=== PATIENT | male | born 1955 | race Caucasian/White ===

== ENCOUNTER 2018-01-16 08:03 | Inpatient (IN) | payer OTHER, MEDICARE ==
[~2018-01-16] VITALS: Ht 182.9 cm; Wt 98.0 kg
[~2018-01-16 08:03] MED LIST: LISI10TA2 PO; PRAV40TA2 PO
[2018-01-16] MEDS ORDERED: IPRATRPIUM/ALBUTEROL 0.5/2.5MG 3 ML NEBU. NEB ONE (08:15)
[2018-01-16] MEDS ORDERED: predniSONE 10 MG TABLET PO ONE (08:15)
--- NOTE | 2018-01-16 08:20 | PHYS DOC ---
Adult General Chief Complaint Chief Complaint: SHORTNESS OF BREATH HPI HPI Patient is a 62 year old male who presents with dyspnea. Patient had been ill with flulike symptoms over the preceding 7 days. His symptoms included general malaise, myalgias, upper respiratory symptoms. These improved but the patient developed a cough over the most recent 5 days. He states his cough has been productive of copious amounts of what he perceives to be purulent sputum. He began to feel short of breath over the last 24 hours. The patient does not have a history of COPD or other lung diseases. He has no congestive heart failure history. He does take medications for blood pressure, diabetes, hypercholesterolemia, and chronic pain. He does also state he had a very similar episode last year when he presented and was diagnosed with pneumonia. Review of Systems Review of Systems Constitutional: Denies fever or chills Eyes: Denies change in visual acuity HENT: Denies Respiratory: as documented above Cardiovascular: No chest pain GI: Denies abdominal pain Musculoskeletal: Denies acute complaints Integument: Denies rash Neurologic: Denies headache, or focal neuro complaints All other systems were reviewed and found to be within normal limits, except as documented in this note. Current Medications Current Medications Current Medications Medications (Trade) Dose Ordered Sig/Gita Start Time Stop Time Status Last Admin Dose Admin Albuterol Sulfate (Ventolin Neb Soln) 10 mg 1X ONCE 01/16/18 09:30 01/16/18 09:31 DC 01/16/18 09:33 10 MG Albuterol/ Ipratropium (Duoneb) 3 ml 1X ONCE 01/16/18 08:15 01/16/18 08:18 DC 01/16/18 08:33 3 ML Azithromycin 250 ml @ 250 mls/hr 1X ONCE 01/16/18 11:00 01/16/18 11:59 UNV Ceftriaxone Sodium 50 ml @ 100 mls/hr 1X ONCE 01/16/18 09:30 01/16/18 09:59 DC 01/16/18 09:31 100 MLS/HR Hydromorphone HCl (Dilaudid) 1 mg 1X ONCE 01/16/18 10:30 01/16/18 10:30 DC Prednisone (Prednisone) 50 mg 1X ONCE 01/16/18 08:15 01/16/18 08:18 DC 01/16/18 08:26 50 MG Sodium Chloride 1,000 ml @ 1,000 mls/hr 1X ONCE 01/16/18 10:45 01/16/18 11:44 01/16/18 10:41 1,000 MLS/HR Allergies Allergies Allergies Coded Allergies Type Severity Reaction Last Updated Verified No Known Drug Allergies 11/20/13 No Physical Exam Physical Exam Constitutional: Well developed, well nourished, mild increased work of breathing , non-toxic appearance HENT: Normocephalic, atraumatic, bilateral external ears normal, oropharynx moist Eyes: PERRLA, EOMI, conjunctiva normal Neck: Normal range of motion Cardiovascular:Heart rate regular rhythm, no murmur Lungs & Thorax: diminished air flow with wheezes in all graham, mild increased work of breathing Abdomen: Bowel sounds normal, soft, no tenderness Skin: Warm, dry, no erythema Extremities: No edema Neurologic: Alert and oriented X 3 Psychologic: Affect normal Current Patient Data Vital Signs Vital Signs Date Time Temp Pulse Resp B/P (MAP) Pulse Ox O2 Delivery O2 Flow Rate FiO2 01/16/18 09:33 96 Nasal Cannula 3.0 01/16/18 09:30 90 16 218/86 (130) 01/16/18 08:07 98.1 98.1 Lab Values Laboratory Tests Test 01/16/18 08:15 01/16/18 09:20 White Blood Count 7.0 x10^3/uL (4.0-11.0) Red Blood Count 4.54 x10^6/uL (4.30-5.70) Hemoglobin 13.4 g/dL (13.0-17.5) Hematocrit 40.0 % (39.0-53.0) Mean Corpuscular Volume 88 fL (79-100) Mean Corpuscular Hemoglobin 30 pg (25-35) Mean Corpuscular Hemoglobin Concent 34 g/dL (31-37) Red Cell Distribution Width 13.7 % (11.5-14.5) Platelet Count 302 x10^3/uL (140-400) Neutrophils (%) (Auto) 65 % (31-73) Lymphocytes (%) (Auto) 19 % (24-48) L Monocytes (%) (Auto) 11 % (0-9) H Eosinophils (%) (Auto) 4 % (0-3) H Basophils (%) (Auto) 1 % (0-3) Neutrophils # (Auto) 4.6 x10^3uL (1.8-7.7) Lymphocytes # (Auto) 1.3 x10^3/uL (1.0-4.8) Monocytes # (Auto) 0.8 x10^3/uL (0.0-1.1) Eosinophils # (Auto) 0.3 x10^3/uL (0.0-0.7) Basophils # (Auto) 0.0 x10^3/uL (0.0-0.2) Influenza Type A Antigen Negative (NEGATIVE) Influenza Type B Antigen Negative (NEGATIVE) Sodium Level 140 mmol/L (136-145) Potassium Level 4.0 mmol/L (3.5-5.1) Chloride Level 100 mmol/L (98-107) Carbon Dioxide Level 31 mmol/L (21-32) Anion Gap 9 (6-14) Blood Urea Nitrogen 6 mg/dL (8-26) L Creatinine 0.8 mg/dL (0.7-1.3) Estimated GFR (Cockcroft-Gault) 98.0 Glucose Level 201 mg/dL (70-99) H Calcium Level 9.2 mg/dL (8.5-10.1) Troponin I Quantitative < 0.017 ng/mL (0.000-0.055) YW-Ygd-C-Type Natriuretic Peptide 107 pg/mL (0-124) Laboratory Tests 18 08:15 Laboratory Tests 18 09:20 EKG EKG No STEMI Interpretation Time: 08:10 Radiology/Procedures Radiology/Procedures FINDINGS: Cardiac and mediastinal silhouettes unremarkable. There are bibasilar reticular and nodular opacities with a possible cavitary nodule in the right lung base. No pleural effusion or pneumothorax. IMPRESSION: Bibasilar reticular and nodular opacities, one of which may have a cavitary component. Findings may represent pneumonitis or multifocal infection with atypicals considered. Follow-up two-view chest radiograph is recommended to assess for resolution. Course & Med Decision Making Course & Med Decision Making Pertinent Labs and Imaging studies reviewed. (See chart for details) 08:15: Patient is seen immediately on arrival to his room. + wheezes in all graham but no prior hx of obstructive lung dz. Duoneb tx and prednisone ordered. PCXR. ACS workup although he does not c/o chest pain. EKG is reviewed and non-acute. 09:20: Re-evaluated. Patient with continued wheezes. CXR revealing for PNA. Rocephin 1 gm IV ordered. Hour-long albuterol nebulized treatment ordered. Labs pending (were hemolyzed and just being redrawn 10:45: Patient is now status post DuoNeb albuterol treatment followed by an hour-long continuous albuterol treatment. He continues to have wheezes. He is satting 95% on 2 L per nasal cannula. Given his chest x-ray findings above and the fact that he has not responded significantly to large albuterol dose, decision is made to admit the patient. Patient is agreeable to this plan of care. In the ER, he was given 1 L of normal saline along with Rocephin and azithromycin. Bridge orders are placed. Consult also requested from pulmonology. Jerardo Disclaimer Dragon Disclaimer This electronic medical record was generated, in whole or in part, using a voice recognition dictation system. Departure Departure Referrals: ALEX HICKS Jr, MD (PCP) ANUSHA HARPER DO Jan 16, 2018 08:20
[2018-01-16 08:26] LABS: BASO % 1 % (0-3); EOS # 0.3 x10^3/uL (0.0-0.7); EOS % 4 % (0-3); HEMOGLOBIN 13.4 g/dL (13.0-17.5); LYMPH # 1.3 x10^3/uL (1.0-4.8); LYMPH % 19 % (24-48); MEAN CORPUSCULAR HEMOGLOBIN 30 pg (25-35); MEAN CORPUSCULAR HGB CONC 34 g/dL (31-37); MEAN CORPUSCULAR VOLUME 88 fL (79-100); MONO # 0.8 x10^3/uL (0.0-1.1); MONO % 11 % (0-9); NEUT # 4.6 x10^3uL (1.8-7.7); NEUT % 65 % (31-73); PLATELET COUNT 302 x10^3/uL (140-400); RED BLOOD COUNT 4.54 x10^6/uL (4.30-5.70); RED CELL DISTRIBUTION WIDTH 13.7 % (11.5-14.5)
--- NOTE | 2018-01-16 08:43 | EKG ---
[facility] [address] [place] [address] Test Date: 2018-01-16 Test Time: 08:10:10 Pat Name: JOSSUE BOYLE Department: Room: Gender: M Plant Specialist: : [id number] Requested By: ANUSHA HARPER Order Number: [id number] Reading MD: Omi De Santiago MD Measurements Intervals Jackson Rate: 93 P: 90 MT: 140 QRS: 26 QRSD: 90 T: 56 QT: 330 QTc: 413 Interpretive Statements SINUS RHYTHM Electronically Signed On 01-16-2018 14:01:02 POT BUILDER by Omi De Santiago MD
[2018-01-16 08:46] LABS: INFLUENZA A PATIENT NEGATIVE (NEGATIVE); INFLUENZA B PATIENT NEGATIVE (NEGATIVE)
[2018-01-16] MEDS ORDERED: ALBUTEROL SULFATE 2.5 MG/3 ML NEBU. CONT NEB ONE (09:30)
[2018-01-16] MEDS ORDERED: IV NORMAL SALINE 500ML BAG 500 ML IV ONE (09:30)
--- NOTE | 2018-01-16 09:36 | RAD ---
Single view chest 01/16/2018 CLINICAL INDICATION: Dyspnea and wheezing. COMPARISON: None. FINDINGS: Cardiac and mediastinal silhouettes unremarkable. There are bibasilar reticular and nodular opacities with a possible cavitary nodule in the right lung base. No pleural effusion or pneumothorax. IMPRESSION: Bibasilar reticular and nodular opacities, one of which may have a cavitary component. Findings may represent pneumonitis or multifocal infection with atypicals considered. Follow-up two-view chest radiograph is recommended to assess for resolution. Electronically signed by: Jose Enrique Traore MD (01/16/2018 9:32 AM) [id number]
[2018-01-16 09:43] LABS: CALCIUM 9.2 mg/dL (8.5-10.1); CREATININE 0.8 mg/dL (0.7-1.3)
[2018-01-16] MEDS ORDERED: HYDROmorphone 2 MG/ML VIAL IV ONE (10:30)
[2018-01-16] MEDS ORDERED: IV NORMAL SALINE 1000ML BAG 1,000 ML IV ONE (10:45)
[2018-01-16] MEDS ORDERED: ONDANSETRON PF 4 MG/2 ML VIAL. IV PRN (11:00)
[2018-01-16] MEDS ORDERED: AZITHRMYCN 500MG IVPB FOR OMNI 250 ML IV ONE (11:00)
[2018-01-16 11:30] VITALS: BP 174/75
--- NOTE | 2018-01-16 12:01 | PDOC1 ---
History and Physical Date of Admission Date of Admission DATE: 01/16/18 TIME: 12:00 Past Medical History Cardiovascular: HTN, Hyperlipidemia Pulmonary: Asthma, COPD GI: No pertinent hx Psych: Addictions Past Surgical History Past Surgical History: No pertinent history Family History Family History: Hypertension Social History Smoke: Quit ALCOHOL: occassional Drugs: None Current Problem List Problem List Problems Medical Problems: (1) Community acquired pneumonia Status: Acute Current Medications Current Medications Current Medications Albuterol/ Ipratropium (Duoneb) 3 ml 1X ONCE NEB Last administered on at 08:33; Start 01/16/18 at 08:15; Stop 01/16/18 at 08:18; Status DC Prednisone (Prednisone) 50 mg 1X ONCE PO Last administered on 01/16/18at 08:26 ; Start 01/16/18 at 08:15; Stop 01/16/18 at 08:18; Status DC Ceftriaxone Sodium 50 ml @ 100 mls/hr 1X ONCE IV Last administered on at 09:31; Start 01/16/18 at 09:30; Stop 01/16/18 at 09:59; Status DC Albuterol Sulfate (Ventolin Neb Soln) 10 mg 1X ONCE CONT NEB Last administered on 01/16/18at 09:33; Start 01/16/18 at 09:30; Stop 01/16/18 at 09:31 ; Status DC Sodium Chloride 500 ml @ 500 mls/hr 1X ONCE IV Last administered on at 09:32; Start 01/16/18 at 09:30; Stop 01/16/18 at 10:29; Status DC Hydromorphone HCl (Dilaudid) 1 mg 1X ONCE IV ; Start 01/16/18 at 10:30; Stop 01/16/18 at 10:30; Status DC Sodium Chloride 1,000 ml @ 1,000 mls/hr 1X ONCE IV Last administered on at 10:41; Start 01/16/18 at 10:45; Stop 01/16/18 at 11:44; Status DC Azithromycin 250 ml @ 250 mls/hr 1X ONCE IV ; Start 01/16/18 at 11:00; Stop 01/16/18 at 11:59; Status DC Ondansetron HCl (Zofran) 4 mg PRN Q8HRS PRN IV NAUSEA/VOMITING; Start 01/16/18 at 11:00; Stop 01/17/18 at 10:59 Acetaminophen (Tylenol) 650 mg PRN Q4HRS PRN PO FEVER; Start 01/16/18 at 11:00 ; Stop 01/17/18 at 10:59 Albuterol/ Ipratropium (Duoneb) 3 ml RTQID NEB ; Start 01/16/18 at 12:00; Stop 01/17/18 at 11:59 Active Scripts Active Reported Pravastatin Sodium 40 Mg Tablet 40 Mg PO DAILY Lisinopril 10 Mg Tablet 10 Mg PO DAILY Allergies Allergies: Coded Allergies: No Known Drug Allergies (Unverified , 11/20/13) ROS Review of System Review of Systems Review of Systems Constitutional: Denies fever or chills Eyes: Denies change in visual acuity HENT: Denies Respiratory: as documented above Cardiovascular: No chest pain GI: Denies abdominal pain Musculoskeletal: Denies acute complaints Integument: Denies rash Neurologic: Denies headache, or focal neuro complaints 14 pt systems were reviewed and found to be within normal limits, except as documented . ENDOCRINE: No: Breast Changes, Galactorrhea, Hair Pattern Changes, Hot Flashes , Malaise/lethargy, Mood Swings, Palpitations, Polydipsia/polyuria, Skin Changes , Temperature Intolerance, Unexpected Weight Changes, Other Respiratory: YES: Cough, Shortness of breath, SOB with excertion, Sputum Changes Physical Exam General: Alert, Oriented X3, Cooperative, mild distress HEENT: Atraumatic, PERRLA Lungs: Other (mod exp wheezing all lung graham) Breasts: Not examined Abdomen: Normal bowel sounds, Soft, No tenderness Rectal Exam: not examined PELVIC: Examination not indicated Extremities: No clubbing, No cyanosis, No edema Skin: No breakdown Neuro: Normal speech, Normal tone, Sensation intact, Cranial nerves 3-12 NL Psych/Mental Status: Mental status NL, Mood NL Vitals Vitals Vital Signs Date Time Temp Pulse Resp B/P (MAP) Pulse Ox O2 Delivery O2 Flow Rate FiO2 01/16/18 11:30 98.4 101 20 174/75 (108) 93 Nasal Cannula 4.0 98.4 Labs Labs Laboratory Tests Test 01/16/18 08:15 01/16/18 09:20 01/16/18 11:30 White Blood Count 7.0 x10^3/uL (4.0-11.0) Red Blood Count 4.54 x10^6/uL (4.30-5.70) Hemoglobin 13.4 g/dL (13.0-17.5) Hematocrit 40.0 % (39.0-53.0) Mean Corpuscular Volume 88 fL (79-100) Mean Corpuscular Hemoglobin 30 pg (25-35) Mean Corpuscular Hemoglobin Concent 34 g/dL (31-37) Red Cell Distribution Width 13.7 % (11.5-14.5) Platelet Count 302 x10^3/uL (140-400) Neutrophils (%) (Auto) 65 % (31-73) Lymphocytes (%) (Auto) 19 % (24-48) Monocytes (%) (Auto) 11 % (0-9) Eosinophils (%) (Auto) 4 % (0-3) Basophils (%) (Auto) 1 % (0-3) Neutrophils # (Auto) 4.6 x10^3uL (1.8-7.7) Lymphocytes # (Auto) 1.3 x10^3/uL (1.0-4.8) Monocytes # (Auto) 0.8 x10^3/uL (0.0-1.1) Eosinophils # (Auto) 0.3 x10^3/uL (0.0-0.7) Basophils # (Auto) 0.0 x10^3/uL (0.0-0.2) Influenza Type A Antigen Negative (NEGATIVE) Influenza Type B Antigen Negative (NEGATIVE) Sodium Level 140 mmol/L (136-145) Potassium Level 4.0 mmol/L (3.5-5.1) Chloride Level 100 mmol/L (98-107) Carbon Dioxide Level 31 mmol/L (21-32) Anion Gap 9 (6-14) Blood Urea Nitrogen 6 mg/dL (8-26) Creatinine 0.8 mg/dL (0.7-1.3) Estimated GFR (Cockcroft-Gault) 98.0 Glucose Level 201 mg/dL (70-99) Calcium Level 9.2 mg/dL (8.5-10.1) Troponin I Quantitative < 0.017 ng/mL (0.000-0.055) YC-Iyn-Q-Type Natriuretic Peptide 107 pg/mL (0-124) Glucose (Fingerstick) 231 mg/dL (70-99) Laboratory Tests Test 01/16/18 08:15 01/16/18 09:20 01/16/18 11:30 White Blood Count 7.0 x10^3/uL (4.0-11.0) Red Blood Count 4.54 x10^6/uL (4.30-5.70) Hemoglobin 13.4 g/dL (13.0-17.5) Hematocrit 40.0 % (39.0-53.0) Mean Corpuscular Volume 88 fL (79-100) Mean Corpuscular Hemoglobin 30 pg (25-35) Mean Corpuscular Hemoglobin Concent 34 g/dL (31-37) Red Cell Distribution Width 13.7 % (11.5-14.5) Platelet Count 302 x10^3/uL (140-400) Neutrophils (%) (Auto) 65 % (31-73) Lymphocytes (%) (Auto) 19 % (24-48) Monocytes (%) (Auto) 11 % (0-9) Eosinophils (%) (Auto) 4 % (0-3) Basophils (%) (Auto) 1 % (0-3) Neutrophils # (Auto) 4.6 x10^3uL (1.8-7.7) Lymphocytes # (Auto) 1.3 x10^3/uL (1.0-4.8) Monocytes # (Auto) 0.8 x10^3/uL (0.0-1.1) Eosinophils # (Auto) 0.3 x10^3/uL (0.0-0.7) Basophils # (Auto) 0.0 x10^3/uL (0.0-0.2) Influenza Type A Antigen Negative (NEGATIVE) Influenza Type B Antigen Negative (NEGATIVE) Sodium Level 140 mmol/L (136-145) Potassium Level 4.0 mmol/L (3.5-5.1) Chloride Level 100 mmol/L (98-107) Carbon Dioxide Level 31 mmol/L (21-32) Anion Gap 9 (6-14) Blood Urea Nitrogen 6 mg/dL (8-26) Creatinine 0.8 mg/dL (0.7-1.3) Estimated GFR (Cockcroft-Gault) 98.0 Glucose Level 201 mg/dL (70-99) Calcium Level 9.2 mg/dL (8.5-10.1) Troponin I Quantitative < 0.017 ng/mL (0.000-0.055) KS-Ntz-I-Type Natriuretic Peptide 107 pg/mL (0-124) Glucose (Fingerstick) 231 mg/dL (70-99) Images Images STATUS: REG ER ORD. PHYSICIAN: ANUSHA HARPER DO REASON: dyspnea, wheezing, PROCEDURE: PORTABLE CHEST 1V Single view chest 01/16/2018 CLINICAL INDICATION: Dyspnea and wheezing. COMPARISON: None. FINDINGS: Cardiac and mediastinal silhouettes unremarkable. There are bibasilar reticular and nodular opacities with a possible cavitary nodule in the right lung base. No pleural effusion or pneumothorax. IMPRESSION: Bibasilar reticular and nodular opacities, one of which may have a cavitary component. Findings may represent pneumonitis or multifocal infection with atypicals considered. Follow-up two-view chest radiograph is recommended to assess for resolution. Electronically signed by: Jose Enrique Traore MD (01/16/2018 9:32 AM) [id number] VTE Prophylaxis Ordered VTE Prophylaxis Devices: Yes VTE Pharmacological Prophylaxi: Yes Assessment/Plan Assessment/Plan impression 1. acute hypoxic rezsp failure 2. COPD EXAC 3. REMOTE TOBACCO ABUSE PLAN 1. TELE 2 ADMIT 3. DUONEBS QID 4. EMPERIC IV ANTIBIOTICS 5. IV STEROID TAPER 6. SQ LOVENOX LISA JUDD MD Jan 16, 2018 12:01
[2018-01-16] MEDS: IPRATRPIUM/ALBUTEROL 0.5/2.5MG 3 ML NEBU. NEB SCH ×3 (12:19→20:07)
[2018-01-16] MEDS ORDERED: ATORVASTATIN CA80 MG PO (12:20)
[2018-01-16] MEDS ORDERED: METF10007 PO (12:20)
[2018-01-16] MEDS ORDERED: LOSA50TA7 PO (12:20)
[2018-01-16] MEDS ORDERED: OXYC-327 PO (12:20)
[2018-01-16] MEDS ORDERED: AMLO5TAB7 PO (12:20)
[2018-01-16 15:01] VITALS: BP 133/80
[2018-01-16] MEDS: ACETAMINOPHEN 325 MG TABLET. PO PRN ×2 (15:37→20:51)
[2018-01-16] MEDS: PIPERACILLIN/TAZOBACTAM 3.375 GM in IV NORMAL SALINE 50ML 50 ML IV SCH ×2 (15:40→20:51)
[2018-01-16] MEDS: methylPREDNISolone SOD SUCC PF 125 MG/2 ML VIAL. IV SCH ×2 (15:41→21:20)
[2018-01-16] MEDS: ENOXAPARIN 40 MG/0.4 ML SYRINGE. SQ SCH (15:43)
[2018-01-16] MEDS ORDERED: ALBUTEROL SULFATE 2.5 MG/3 ML NEBU. NEB PRN (16:30)
--- NOTE | 2018-01-16 17:42 | PDOC ---
PULMONARY PROGRESS NOTES Vitals Vital Signs Date Time Temp Pulse Resp B/P (MAP) Pulse Ox O2 Delivery O2 Flow Rate FiO2 01/16/18 15:18 Nasal Cannula 2.0 01/16/18 15:01 99.4 104 18 133/80 (97) 91 99.4 Labs Laboratory Tests Test 01/16/18 08:15 01/16/18 09:20 01/16/18 11:30 01/16/18 16:12 White Blood Count 7.0 x10^3/uL (4.0-11.0) Red Blood Count 4.54 x10^6/uL (4.30-5.70) Hemoglobin 13.4 g/dL (13.0-17.5) Hematocrit 40.0 % (39.0-53.0) Mean Corpuscular Volume 88 fL (79-100) Mean Corpuscular Hemoglobin 30 pg (25-35) Mean Corpuscular Hemoglobin Concent 34 g/dL (31-37) Red Cell Distribution Width 13.7 % (11.5-14.5) Platelet Count 302 x10^3/uL (140-400) Neutrophils (%) (Auto) 65 % (31-73) Lymphocytes (%) (Auto) 19 % (24-48) Monocytes (%) (Auto) 11 % (0-9) Eosinophils (%) (Auto) 4 % (0-3) Basophils (%) (Auto) 1 % (0-3) Neutrophils # (Auto) 4.6 x10^3uL (1.8-7.7) Lymphocytes # (Auto) 1.3 x10^3/uL (1.0-4.8) Monocytes # (Auto) 0.8 x10^3/uL (0.0-1.1) Eosinophils # (Auto) 0.3 x10^3/uL (0.0-0.7) Basophils # (Auto) 0.0 x10^3/uL (0.0-0.2) Influenza Type A Antigen Negative (NEGATIVE) Influenza Type B Antigen Negative (NEGATIVE) Sodium Level 140 mmol/L (136-145) Potassium Level 4.0 mmol/L (3.5-5.1) Chloride Level 100 mmol/L (98-107) Carbon Dioxide Level 31 mmol/L (21-32) Anion Gap 9 (6-14) Blood Urea Nitrogen 6 mg/dL (8-26) Creatinine 0.8 mg/dL (0.7-1.3) Estimated GFR (Cockcroft-Gault) 98.0 Glucose Level 201 mg/dL (70-99) Calcium Level 9.2 mg/dL (8.5-10.1) Troponin I Quantitative < 0.017 ng/mL (0.000-0.055) HQ-Yoc-R-Type Natriuretic Peptide 107 pg/mL (0-124) Glucose (Fingerstick) 231 mg/dL (70-99) 380 mg/dL (70-99) Laboratory Tests Test 01/16/18 08:15 01/16/18 09:20 01/16/18 11:30 01/16/18 16:12 White Blood Count 7.0 x10^3/uL (4.0-11.0) Red Blood Count 4.54 x10^6/uL (4.30-5.70) Hemoglobin 13.4 g/dL (13.0-17.5) Hematocrit 40.0 % (39.0-53.0) Mean Corpuscular Volume 88 fL (79-100) Mean Corpuscular Hemoglobin 30 pg (25-35) Mean Corpuscular Hemoglobin Concent 34 g/dL (31-37) Red Cell Distribution Width 13.7 % (11.5-14.5) Platelet Count 302 x10^3/uL (140-400) Neutrophils (%) (Auto) 65 % (31-73) Lymphocytes (%) (Auto) 19 % (24-48) Monocytes (%) (Auto) 11 % (0-9) Eosinophils (%) (Auto) 4 % (0-3) Basophils (%) (Auto) 1 % (0-3) Neutrophils # (Auto) 4.6 x10^3uL (1.8-7.7) Lymphocytes # (Auto) 1.3 x10^3/uL (1.0-4.8) Monocytes # (Auto) 0.8 x10^3/uL (0.0-1.1) Eosinophils # (Auto) 0.3 x10^3/uL (0.0-0.7) Basophils # (Auto) 0.0 x10^3/uL (0.0-0.2) Influenza Type A Antigen Negative (NEGATIVE) Influenza Type B Antigen Negative (NEGATIVE) Sodium Level 140 mmol/L (136-145) Potassium Level 4.0 mmol/L (3.5-5.1) Chloride Level 100 mmol/L (98-107) Carbon Dioxide Level 31 mmol/L (21-32) Anion Gap 9 (6-14) Blood Urea Nitrogen 6 mg/dL (8-26) Creatinine 0.8 mg/dL (0.7-1.3) Estimated GFR (Cockcroft-Gault) 98.0 Glucose Level 201 mg/dL (70-99) Calcium Level 9.2 mg/dL (8.5-10.1) Troponin I Quantitative < 0.017 ng/mL (0.000-0.055) FH-Hjp-M-Type Natriuretic Peptide 107 pg/mL (0-124) Glucose (Fingerstick) 231 mg/dL (70-99) 380 mg/dL (70-99) Medications Active Scripts Medications Dose Route/Sig Max Daily Dose Days Date Category Percocet 7.5-325 Mg Tablet (Oxycodone/Acetaminophen) 1 Each Tablet 1 Tab PO QID 01/16/18 Reported Amlodipine Besylate 5 Mg Tablet 5 Mg PO DAILY 01/16/18 Reported Metformin Hcl 1,000 Mg Tablet 1,000 Mg PO BIDWMEALS 01/16/18 Reported Losartan Potassium 50 Mg Tablet 50 Mg PO DAILY 01/16/18 Reported Atorvastatin Calcium 80 Mg Tablet 1 Tab PO DAILY 01/16/18 Reported Impression . NOTE DICTATED PNEUMONIA WILL CHECK CT CHEST A RESP FAILURE/AECOPD LUCERO MENDOZA MD Jan 16, 2018 17:42
[2018-01-16 19:00] VITALS: BP 173/86
[2018-01-16] MEDS ORDERED: DEXTROSE 50% 25 GM / 50ML DISP.SYRIN. IV PRN (19:45)
[2018-01-16] MEDS ORDERED: INSULIN GLARGINE 300 UNITS/3 ML INSULN.PEN. SQ ONE (20:00)
[2018-01-16] MEDS ORDERED: INSULIN LISPRO 300 UNITS/3 ML INSULN.PEN. SQ ONE (20:00)
[2018-01-16] MEDS: BUDESONIDE 0.5 MG/2 ML NEBU. NEB SCH (20:06)
[2018-01-16] MEDS ORDERED: diphenhydrAMINE HCL 25 MG CAPSULE PO PRN (20:30)
[2018-01-16] MEDS: LACTOBACILLUS RHAMNOSUS GG 1 CAPSULE. PO SCH (20:51)
[2018-01-16 23:00] VITALS: BP 155/84
[2018-01-17] MEDS: PIPERACILLIN/TAZOBACTAM 3.375 GM in IV NORMAL SALINE 50ML 50 ML IV SCH ×3 (00:02→12:10)
--- NOTE | 2018-01-17 02:16 | CONS ---
DATE OF CONSULTATION: 01/16/2018 ATTENDING PHYSICIAN: Yan Germain MD REASON FOR CONSULTATION: The patient seen in pulmonary consultation at the request of Dr. Germain for increasing shortness of air. HISTORY OF PRESENT ILLNESS: The patient is a 62-year-old with history of tobacco use, quit 5 years ago. States that he has never been told he has had COPD. Once or twice a year, he experiences shortness of breath to the point where he needs to be treated. He was in the hospital last year. The patient apparently had flu-like symptoms about a week ago and progressed to increasing shortness of breath. He can tolerate it activities of daily living. A week ago, he had some generalized malaise, myalgias, and upper respiratory symptoms. He presented with the above symptoms. He was evaluated, had a chest x-ray, which revealed basilar reticular nodular opacities. There was some cavitary component . The patient denies hemoptysis, no documented fever. No family history of lung cancer. PAST MEDICAL HISTORY: Tobacco dependence in remission, hypertension, COPD, unknown FEV1, hyperlipidemia. PAST SURGICAL HISTORY: No recent major surgery. FAMILY HISTORY: No family history of lung cancer. SOCIAL HISTORY: Discontinue tobacco 5 years ago, is currently retired. Occasional use of alcohol. REVIEW OF SYSTEMS: CONSTITUTIONAL: Subjective fevers, some myalgias last week. EYES: No change in visual acuity. HEENT: No nasal congestion or sore throat. PULMONARY: As indicated above. CARDIOVASCULAR: No angina type of discomfort. GASTROINTESTINAL: No nausea, vomiting or diarrhea. GENITOURINARY: No dysuria or frequency. MUSCULOSKELETAL: No localized muscle aches or joint pains. SKIN: No new skin rashes. NEUROLOGIC: No headaches, diplopia or blurred vision. ALLERGIES: No known drug allergies. CURRENT MEDICATIONS: List was reviewed. PHYSICAL EXAMINATION: VITAL SIGNS: Stable. O2 saturation was greater than 92%, currently on 2 L. HEENT: Eyes: The sclerae were nonicteric. NECK: Jugular venous distention was not elevated. No lymphadenopathy. CHEST: Full expansion. LUNGS: Prolonged expiratory wheeze, poor airway flow. CARDIOVASCULAR: Regular rate and rhythm with S1, S2, no S3. ABDOMEN: Obese, soft. EXTREMITIES: No clubbing, cyanosis or edema. NEUROLOGIC: The patient was awake, alert, following commands. A detailed neuro exam was not performed. VACCINATION HISTORY: The patient is not up-to-date on pneumonia vaccination, nor on flu vaccination. LABORATORY DATA: White count was normal. Hemoglobin and hematocrit were noted. Electrolytes were noted. BUN and creatinine were normal. Troponin was not elevated. BNP was not elevated. Chest x-ray abnormal. IMPRESSION: 1. Acute hypoxemic respiratory failure. 2. Abnormal chest x-ray revealing possible cavitary lesion. 3. Acute exacerbation of chronic obstructive pulmonary disease. 4. Pneumonia, suspect gram negative. 5. Recent flu-like symptoms. 6. Tobacco dependence, in remission. 7. Obesity. 8. Hypertension. PLAN: 1. We will proceed with CT chest. 2. Continue current antibiotics. 3. Nebulized treatments. 4. The patient instructed to avoid secondhand tobacco. 5. Outpatient pulmonary function testing. 6. I recommend the patient start a long-acting bronchodilator such as a long-acting muscarinic agent for COPD maintenance medication, DVT prophylaxis. I do appreciate the privilege in sharing in the patient's care. LUCERO MENDOZA MD DR: CLARI/honorio JOB#: [id number] / [id number]
[2018-01-17 03:00] VITALS: BP 169/81
[2018-01-17] MEDS: methylPREDNISolone SOD SUCC PF 125 MG/2 ML VIAL. IV SCH ×3 (06:08→21:48)
[2018-01-17] MEDS: ACETAMINOPHEN 325 MG TABLET. PO PRN (06:14)
[2018-01-17 07:00] VITALS: BP 168/92
[2018-01-17] MEDS: IPRATRPIUM/ALBUTEROL 0.5/2.5MG 3 ML NEBU. NEB SCH ×4 (07:19→19:28)
[2018-01-17] MEDS: BUDESONIDE 0.5 MG/2 ML NEBU. NEB SCH ×2 (07:19→19:29)
[2018-01-17 08:14] LABS: BASO % 0 % (0-3); EOS % 0 % (0-3); HEMATOCRIT 40.8 % (39.0-53.0); HEMOGLOBIN 13.9 g/dL (13.0-17.5); LYMPH # 1.2 x10^3/uL (1.0-4.8); LYMPH % 7 % (24-48); MEAN CORPUSCULAR HEMOGLOBIN 30 pg (25-35); MEAN CORPUSCULAR HGB CONC 34 g/dL (31-37); MEAN CORPUSCULAR VOLUME 88 fL (79-100); MONO # 0.5 x10^3/uL (0.0-1.1); MONO % 3 % (0-9); NEUT # 16.2 x10^3uL (1.8-7.7); NEUT % 91 % (31-73); PLATELET COUNT 346 x10^3/uL (140-400); RED BLOOD COUNT 4.63 x10^6/uL (4.30-5.70); WHITE BLOOD COUNT 17.8 x10^3/uL (4.0-11.0)
--- NOTE | 2018-01-17 08:15 | RAD ---
CT chest without contrast 01/17/2018 CLINICAL INDICATION: Possible cavitary lesion in the right lung base. COMPARISON: Chest radiograph 01/16/2018 TECHNIQUE: Multiple CT images of the chest were obtained without contrast. *One or more of the following individualized dose reduction techniques were utilized for this examination: 1. Automated exposure control. 2. Adjustment of the mA and/or kV according to patient size. 3. Use of iterative reconstruction technique. FINDINGS: Heart size is normal without significant pericardial effusion. The thoracic aorta is normal in caliber with mild calcified atheromatous disease. No axillary, mediastinal or hilar lymphadenopathy, though evaluation is somewhat limited in the absence of intravenous contrast. The central airways are patent. There is minimal dependent lower lobe tree-in-bud opacities. There is no cavitary lesion. No pleural effusion or pneumothorax. Levoconvex upper thoracic scoliosis. There are no destructive osseous lesions. Limited images of the upper abdomen: Grossly unremarkable. IMPRESSION: 1. No cavitary lesion. 2. Minimal bilateral lower lobe tree-in-bud opacities consistent with infectious/inflammatory bronchiolitis. Electronically signed by: Jose Enrique Traore MD (01/17/2018 8:12 AM) [id number]
[2018-01-17] MEDS: LACTOBACILLUS RHAMNOSUS GG 1 CAPSULE. PO SCH ×2 (09:05→21:37)
[2018-01-17] MEDS: INSULIN LISPRO 300 UNITS/3 ML INSULN.PEN. SQ SCH ×3 (09:09→16:58)
[2018-01-17 09:43] LABS: % ATYL 1 % (0-0); % BANDS 8 % (0-9); % LYMPHS 6 % (24-48); % MONOS 4 % (0-10); % SEGS 81 % (35-66); PLT ESTIMATE ADEQUATE (ADEQUATE)
[2018-01-17 09:51] LABS: ALBUMIN 3.9 g/dL (3.4-5.0); ALBUMIN/GLOBULIN RATIO 0.9 (1.0-1.7); CALCIUM 9.6 mg/dL (8.5-10.1); CREATININE 0.9 mg/dL (0.7-1.3); GFR 85.5; POTASSIUM 3.8 mmol/L (3.5-5.1); TOTAL BILIRUBIN 0.4 mg/dL (0.2-1.0); TOTAL PROTEIN 8.2 g/dL (6.4-8.2)
--- NOTE | 2018-01-17 10:32 | PDOC ---
PULMONARY PROGRESS NOTES Vitals Vital Signs Date Time Temp Pulse Resp B/P (MAP) Pulse Ox O2 Delivery O2 Flow Rate FiO2 01/17/18 07:20 90 Nasal Cannula 2.0 01/17/18 07:00 97.6 99 18 168/92 (117) 97.6 Labs Laboratory Tests Test 01/16/18 08:15 01/16/18 09:20 01/16/18 11:30 01/16/18 16:12 White Blood Count 7.0 x10^3/uL (4.0-11.0) Red Blood Count 4.54 x10^6/uL (4.30-5.70) Hemoglobin 13.4 g/dL (13.0-17.5) Hematocrit 40.0 % (39.0-53.0) Mean Corpuscular Volume 88 fL (79-100) Mean Corpuscular Hemoglobin 30 pg (25-35) Mean Corpuscular Hemoglobin Concent 34 g/dL (31-37) Red Cell Distribution Width 13.7 % (11.5-14.5) Platelet Count 302 x10^3/uL (140-400) Neutrophils (%) (Auto) 65 % (31-73) Lymphocytes (%) (Auto) 19 % (24-48) Monocytes (%) (Auto) 11 % (0-9) Eosinophils (%) (Auto) 4 % (0-3) Basophils (%) (Auto) 1 % (0-3) Neutrophils # (Auto) 4.6 x10^3uL (1.8-7.7) Lymphocytes # (Auto) 1.3 x10^3/uL (1.0-4.8) Monocytes # (Auto) 0.8 x10^3/uL (0.0-1.1) Eosinophils # (Auto) 0.3 x10^3/uL (0.0-0.7) Basophils # (Auto) 0.0 x10^3/uL (0.0-0.2) Influenza Type A Antigen Negative (NEGATIVE) Influenza Type B Antigen Negative (NEGATIVE) Sodium Level 140 mmol/L (136-145) Potassium Level 4.0 mmol/L (3.5-5.1) Chloride Level 100 mmol/L (98-107) Carbon Dioxide Level 31 mmol/L (21-32) Anion Gap 9 (6-14) Blood Urea Nitrogen 6 mg/dL (8-26) Creatinine 0.8 mg/dL (0.7-1.3) Estimated GFR (Cockcroft-Gault) 98.0 Glucose Level 201 mg/dL (70-99) Calcium Level 9.2 mg/dL (8.5-10.1) Troponin I Quantitative < 0.017 ng/mL (0.000-0.055) SY-Yol-H-Type Natriuretic Peptide 107 pg/mL (0-124) Glucose (Fingerstick) 231 mg/dL (70-99) 380 mg/dL (70-99) Test 01/16/18 19:43 01/16/18 20:39 01/16/18 21:22 01/16/18 22:35 Glucose (Fingerstick) 423 mg/dL (70-99) 407 mg/dL (70-99) 419 mg/dL (70-99) 370 mg/dL (70-99) Test 01/17/18 07:35 01/17/18 07:39 White Blood Count 17.8 x10^3/uL (4.0-11.0) Red Blood Count 4.63 x10^6/uL (4.30-5.70) Hemoglobin 13.9 g/dL (13.0-17.5) Hematocrit 40.8 % (39.0-53.0) Mean Corpuscular Volume 88 fL (79-100) Mean Corpuscular Hemoglobin 30 pg (25-35) Mean Corpuscular Hemoglobin Concent 34 g/dL (31-37) Red Cell Distribution Width 14.0 % (11.5-14.5) Platelet Count 346 x10^3/uL (140-400) Neutrophils (%) (Auto) 91 % (31-73) Lymphocytes (%) (Auto) 7 % (24-48) Monocytes (%) (Auto) 3 % (0-9) Eosinophils (%) (Auto) 0 % (0-3) Basophils (%) (Auto) 0 % (0-3) Neutrophils # (Auto) 16.2 x10^3uL (1.8-7.7) Lymphocytes # (Auto) 1.2 x10^3/uL (1.0-4.8) Monocytes # (Auto) 0.5 x10^3/uL (0.0-1.1) Eosinophils # (Auto) 0.0 x10^3/uL (0.0-0.7) Basophils # (Auto) 0.0 x10^3/uL (0.0-0.2) Segmented Neutrophils % 81 % (35-66) Band Neutrophils % 8 % (0-9) Lymphocytes % 6 % (24-48) Atypical Lymphocytes % (Manual) 1 % (0-0) Monocytes % 4 % (0-10) Platelet Estimate Adequate (ADEQUATE) Sodium Level 139 mmol/L (136-145) Potassium Level 3.8 mmol/L (3.5-5.1) Chloride Level 97 mmol/L (98-107) Carbon Dioxide Level 30 mmol/L (21-32) Anion Gap 12 (6-14) Blood Urea Nitrogen 12 mg/dL (8-26) Creatinine 0.9 mg/dL (0.7-1.3) Estimated GFR (Cockcroft-Gault) 85.5 BUN/Creatinine Ratio 13 (6-20) Glucose Level 283 mg/dL (70-99) Calcium Level 9.6 mg/dL (8.5-10.1) Total Bilirubin 0.4 mg/dL (0.2-1.0) Aspartate Amino Transf (AST/SGOT) 13 U/L (15-37) Alanine Aminotransferase (ALT/SGPT) 27 U/L (16-63) Alkaline Phosphatase 109 U/L (46-116) Total Protein 8.2 g/dL (6.4-8.2) Albumin 3.9 g/dL (3.4-5.0) Albumin/Globulin Ratio 0.9 (1.0-1.7) Glucose (Fingerstick) 273 mg/dL (70-99) Laboratory Tests Test 01/16/18 11:30 01/16/18 16:12 01/16/18 19:43 01/16/18 20:39 Glucose (Fingerstick) 231 mg/dL (70-99) 380 mg/dL (70-99) 423 mg/dL (70-99) 407 mg/dL (70-99) Test 01/16/18 21:22 01/16/18 22:35 01/17/18 07:35 01/17/18 07:39 Glucose (Fingerstick) 419 mg/dL (70-99) 370 mg/dL (70-99) 273 mg/dL (70-99) White Blood Count 17.8 x10^3/uL (4.0-11.0) Red Blood Count 4.63 x10^6/uL (4.30-5.70) Hemoglobin 13.9 g/dL (13.0-17.5) Hematocrit 40.8 % (39.0-53.0) Mean Corpuscular Volume 88 fL (79-100) Mean Corpuscular Hemoglobin 30 pg (25-35) Mean Corpuscular Hemoglobin Concent 34 g/dL (31-37) Red Cell Distribution Width 14.0 % (11.5-14.5) Platelet Count 346 x10^3/uL (140-400) Neutrophils (%) (Auto) 91 % (31-73) Lymphocytes (%) (Auto) 7 % (24-48) Monocytes (%) (Auto) 3 % (0-9) Eosinophils (%) (Auto) 0 % (0-3) Basophils (%) (Auto) 0 % (0-3) Neutrophils # (Auto) 16.2 x10^3uL (1.8-7.7) Lymphocytes # (Auto) 1.2 x10^3/uL (1.0-4.8) Monocytes # (Auto) 0.5 x10^3/uL (0.0-1.1) Eosinophils # (Auto) 0.0 x10^3/uL (0.0-0.7) Basophils # (Auto) 0.0 x10^3/uL (0.0-0.2) Segmented Neutrophils % 81 % (35-66) Band Neutrophils % 8 % (0-9) Lymphocytes % 6 % (24-48) Atypical Lymphocytes % (Manual) 1 % (0-0) Monocytes % 4 % (0-10) Platelet Estimate Adequate (ADEQUATE) Sodium Level 139 mmol/L (136-145) Potassium Level 3.8 mmol/L (3.5-5.1) Chloride Level 97 mmol/L (98-107) Carbon Dioxide Level 30 mmol/L (21-32) Anion Gap 12 (6-14) Blood Urea Nitrogen 12 mg/dL (8-26) Creatinine 0.9 mg/dL (0.7-1.3) Estimated GFR (Cockcroft-Gault) 85.5 BUN/Creatinine Ratio 13 (6-20) Glucose Level 283 mg/dL (70-99) Calcium Level 9.6 mg/dL (8.5-10.1) Total Bilirubin 0.4 mg/dL (0.2-1.0) Aspartate Amino Transf (AST/SGOT) 13 U/L (15-37) Alanine Aminotransferase (ALT/SGPT) 27 U/L (16-63) Alkaline Phosphatase 109 U/L (46-116) Total Protein 8.2 g/dL (6.4-8.2) Albumin 3.9 g/dL (3.4-5.0) Albumin/Globulin Ratio 0.9 (1.0-1.7) Medications Active Scripts Medications Dose Route/Sig Max Daily Dose Days Date Category Percocet 7.5-325 Mg Tablet (Oxycodone/Acetaminophen) 1 Each Tablet 1 Tab PO QID 01/16/18 Reported Amlodipine Besylate 5 Mg Tablet 5 Mg PO DAILY 01/16/18 Reported Metformin Hcl 1,000 Mg Tablet 1,000 Mg PO BIDWMEALS 01/16/18 Reported Losartan Potassium 50 Mg Tablet 50 Mg PO DAILY 01/16/18 Reported Atorvastatin Calcium 80 Mg Tablet 1 Tab PO DAILY 01/16/18 Reported Impression . IMPRESSION: 1. Acute hypoxemic respiratory failure. 2. Abnormal chest x-ray revealing possible cavitary lesion. 3. Acute exacerbation of chronic obstructive pulmonary disease. 4. Pneumonia, suspect gram negative. 5. Recent flu-like symptoms. 6. Tobacco dependence, in remission. 7. Obesity. 8. Hypertension. Plan . 1. We will proceed with CT chest. 2. Continue current antibiotics. 3. Nebulized treatments. 4. The patient instructed to avoid secondhand tobacco. 5. Outpatient pulmonary function testing. 6. I recommend the patient start a long-acting bronchodilator such as a long-acting muscarinic agent for COPD maintenance medication, DVT prophylaxis. LUCERO MENDOZA MD Jan 17, 2018 10:32
--- NOTE | 2018-01-17 10:35 | PDOC ---
PROGRESS NOTES History of Present Illness History of Present Illness Assessment/Plan Assessment/Plan impression 1. acute hypoxic resp failure 2. COPD EXAC 3. REMOTE TOBACCO ABUSE 4. diabetes PLAN 1. TELE 2 ADMIT 3. DUONEBS QID 4. EMPERIC IV ANTIBIOTICS 5. IV STEROID TAPER 6. SQ LOVENOX 7. o2 support 8. ct chest 9. ss insulin Vitals Vitals Vital Signs Date Time Temp Pulse Resp B/P (MAP) Pulse Ox O2 Delivery O2 Flow Rate FiO2 01/17/18 07:20 90 Nasal Cannula 2.0 01/17/18 07:00 97.6 99 18 168/92 (117) 97.6 Physical Exam General: Alert, Oriented X3, Cooperative, mild distress Heart: Regular rate Lungs: Crackles Abdomen: Normal bowel sounds, Soft, No tenderness Extremities: No clubbing, No cyanosis, No edema Skin: No breakdown Labs LABS CT chest without contrast 01/17/2018 CLINICAL INDICATION: Possible cavitary lesion in the right lung base. COMPARISON: Chest radiograph 01/16/2018 TECHNIQUE: Multiple CT images of the chest were obtained without contrast. *One or more of the following individualized dose reduction techniques were utilized for this examination: 1. Automated exposure control. 2. Adjustment of the mA and/or kV according to patient size. 3. Use of iterative reconstruction technique. FINDINGS: Heart size is normal without significant pericardial effusion. The thoracic aorta is normal in caliber with mild calcified atheromatous disease. No axillary, mediastinal or hilar lymphadenopathy, though evaluation is somewhat limited in the absence of intravenous contrast. The central airways are patent. There is minimal dependent lower lobe tree-in-bud opacities. There is no cavitary lesion. No pleural effusion or pneumothorax. Levoconvex upper thoracic scoliosis. There are no destructive osseous lesions. Limited images of the upper abdomen: Grossly unremarkable. IMPRESSION: 1. No cavitary lesion. 2. Minimal bilateral lower lobe tree-in-bud opacities consistent with bronchiolitis Laboratory Tests Test 01/16/18 11:30 01/16/18 16:12 01/16/18 19:43 01/16/18 20:39 Glucose (Fingerstick) 231 mg/dL (70-99) 380 mg/dL (70-99) 423 mg/dL (70-99) 407 mg/dL (70-99) Test 01/16/18 21:22 01/16/18 22:35 01/17/18 07:35 01/17/18 07:39 Glucose (Fingerstick) 419 mg/dL (70-99) 370 mg/dL (70-99) 273 mg/dL (70-99) White Blood Count 17.8 x10^3/uL (4.0-11.0) Red Blood Count 4.63 x10^6/uL (4.30-5.70) Hemoglobin 13.9 g/dL (13.0-17.5) Hematocrit 40.8 % (39.0-53.0) Mean Corpuscular Volume 88 fL (79-100) Mean Corpuscular Hemoglobin 30 pg (25-35) Mean Corpuscular Hemoglobin Concent 34 g/dL (31-37) Red Cell Distribution Width 14.0 % (11.5-14.5) Platelet Count 346 x10^3/uL (140-400) Neutrophils (%) (Auto) 91 % (31-73) Lymphocytes (%) (Auto) 7 % (24-48) Monocytes (%) (Auto) 3 % (0-9) Eosinophils (%) (Auto) 0 % (0-3) Basophils (%) (Auto) 0 % (0-3) Neutrophils # (Auto) 16.2 x10^3uL (1.8-7.7) Lymphocytes # (Auto) 1.2 x10^3/uL (1.0-4.8) Monocytes # (Auto) 0.5 x10^3/uL (0.0-1.1) Eosinophils # (Auto) 0.0 x10^3/uL (0.0-0.7) Basophils # (Auto) 0.0 x10^3/uL (0.0-0.2) Segmented Neutrophils % 81 % (35-66) Band Neutrophils % 8 % (0-9) Lymphocytes % 6 % (24-48) Atypical Lymphocytes % (Manual) 1 % (0-0) Monocytes % 4 % (0-10) Platelet Estimate Adequate (ADEQUATE) Sodium Level 139 mmol/L (136-145) Potassium Level 3.8 mmol/L (3.5-5.1) Chloride Level 97 mmol/L (98-107) Carbon Dioxide Level 30 mmol/L (21-32) Anion Gap 12 (6-14) Blood Urea Nitrogen 12 mg/dL (8-26) Creatinine 0.9 mg/dL (0.7-1.3) Estimated GFR (Cockcroft-Gault) 85.5 BUN/Creatinine Ratio 13 (6-20) Glucose Level 283 mg/dL (70-99) Calcium Level 9.6 mg/dL (8.5-10.1) Total Bilirubin 0.4 mg/dL (0.2-1.0) Aspartate Amino Transf (AST/SGOT) 13 U/L (15-37) Alanine Aminotransferase (ALT/SGPT) 27 U/L (16-63) Alkaline Phosphatase 109 U/L (46-116) Total Protein 8.2 g/dL (6.4-8.2) Albumin 3.9 g/dL (3.4-5.0) Albumin/Globulin Ratio 0.9 (1.0-1.7) Assessment and Plan Assessmemt and Plan Problems Medical Problems: (1) Community acquired pneumonia Status: Acute Comment Review of Relevant I have reviewed the following items rubén (where applicable) has been applied. Labs Laboratory Tests Test 01/16/18 08:15 01/16/18 09:20 01/16/18 11:30 01/16/18 16:12 White Blood Count 7.0 x10^3/uL (4.0-11.0) Red Blood Count 4.54 x10^6/uL (4.30-5.70) Hemoglobin 13.4 g/dL (13.0-17.5) Hematocrit 40.0 % (39.0-53.0) Mean Corpuscular Volume 88 fL (79-100) Mean Corpuscular Hemoglobin 30 pg (25-35) Mean Corpuscular Hemoglobin Concent 34 g/dL (31-37) Red Cell Distribution Width 13.7 % (11.5-14.5) Platelet Count 302 x10^3/uL (140-400) Neutrophils (%) (Auto) 65 % (31-73) Lymphocytes (%) (Auto) 19 % (24-48) Monocytes (%) (Auto) 11 % (0-9) Eosinophils (%) (Auto) 4 % (0-3) Basophils (%) (Auto) 1 % (0-3) Neutrophils # (Auto) 4.6 x10^3uL (1.8-7.7) Lymphocytes # (Auto) 1.3 x10^3/uL (1.0-4.8) Monocytes # (Auto) 0.8 x10^3/uL (0.0-1.1) Eosinophils # (Auto) 0.3 x10^3/uL (0.0-0.7) Basophils # (Auto) 0.0 x10^3/uL (0.0-0.2) Influenza Type A Antigen Negative (NEGATIVE) Influenza Type B Antigen Negative (NEGATIVE) Sodium Level 140 mmol/L (136-145) Potassium Level 4.0 mmol/L (3.5-5.1) Chloride Level 100 mmol/L (98-107) Carbon Dioxide Level 31 mmol/L (21-32) Anion Gap 9 (6-14) Blood Urea Nitrogen 6 mg/dL (8-26) Creatinine 0.8 mg/dL (0.7-1.3) Estimated GFR (Cockcroft-Gault) 98.0 Glucose Level 201 mg/dL (70-99) Calcium Level 9.2 mg/dL (8.5-10.1) Troponin I Quantitative < 0.017 ng/mL (0.000-0.055) WB-Cds-U-Type Natriuretic Peptide 107 pg/mL (0-124) Glucose (Fingerstick) 231 mg/dL (70-99) 380 mg/dL (70-99) Test 01/16/18 19:43 01/16/18 20:39 01/16/18 21:22 01/16/18 22:35 Glucose (Fingerstick) 423 mg/dL (70-99) 407 mg/dL (70-99) 419 mg/dL (70-99) 370 mg/dL (70-99) Test 01/17/18 07:35 01/17/18 07:39 White Blood Count 17.8 x10^3/uL (4.0-11.0) Red Blood Count 4.63 x10^6/uL (4.30-5.70) Hemoglobin 13.9 g/dL (13.0-17.5) Hematocrit 40.8 % (39.0-53.0) Mean Corpuscular Volume 88 fL (79-100) Mean Corpuscular Hemoglobin 30 pg (25-35) Mean Corpuscular Hemoglobin Concent 34 g/dL (31-37) Red Cell Distribution Width 14.0 % (11.5-14.5) Platelet Count 346 x10^3/uL (140-400) Neutrophils (%) (Auto) 91 % (31-73) Lymphocytes (%) (Auto) 7 % (24-48) Monocytes (%) (Auto) 3 % (0-9) Eosinophils (%) (Auto) 0 % (0-3) Basophils (%) (Auto) 0 % (0-3) Neutrophils # (Auto) 16.2 x10^3uL (1.8-7.7) Lymphocytes # (Auto) 1.2 x10^3/uL (1.0-4.8) Monocytes # (Auto) 0.5 x10^3/uL (0.0-1.1) Eosinophils # (Auto) 0.0 x10^3/uL (0.0-0.7) Basophils # (Auto) 0.0 x10^3/uL (0.0-0.2) Segmented Neutrophils % 81 % (35-66) Band Neutrophils % 8 % (0-9) Lymphocytes % 6 % (24-48) Atypical Lymphocytes % (Manual) 1 % (0-0) Monocytes % 4 % (0-10) Platelet Estimate Adequate (ADEQUATE) Sodium Level 139 mmol/L (136-145) Potassium Level 3.8 mmol/L (3.5-5.1) Chloride Level 97 mmol/L (98-107) Carbon Dioxide Level 30 mmol/L (21-32) Anion Gap 12 (6-14) Blood Urea Nitrogen 12 mg/dL (8-26) Creatinine 0.9 mg/dL (0.7-1.3) Estimated GFR (Cockcroft-Gault) 85.5 BUN/Creatinine Ratio 13 (6-20) Glucose Level 283 mg/dL (70-99) Calcium Level 9.6 mg/dL (8.5-10.1) Total Bilirubin 0.4 mg/dL (0.2-1.0) Aspartate Amino Transf (AST/SGOT) 13 U/L (15-37) Alanine Aminotransferase (ALT/SGPT) 27 U/L (16-63) Alkaline Phosphatase 109 U/L (46-116) Total Protein 8.2 g/dL (6.4-8.2) Albumin 3.9 g/dL (3.4-5.0) Albumin/Globulin Ratio 0.9 (1.0-1.7) Glucose (Fingerstick) 273 mg/dL (70-99) Laboratory Tests Test 01/16/18 11:30 01/16/18 16:12 01/16/18 19:43 01/16/18 20:39 Glucose (Fingerstick) 231 mg/dL (70-99) 380 mg/dL (70-99) 423 mg/dL (70-99) 407 mg/dL (70-99) Test 01/16/18 21:22 01/16/18 22:35 01/17/18 07:35 01/17/18 07:39 Glucose (Fingerstick) 419 mg/dL (70-99) 370 mg/dL (70-99) 273 mg/dL (70-99) White Blood Count 17.8 x10^3/uL (4.0-11.0) Red Blood Count 4.63 x10^6/uL (4.30-5.70) Hemoglobin 13.9 g/dL (13.0-17.5) Hematocrit 40.8 % (39.0-53.0) Mean Corpuscular Volume 88 fL (79-100) Mean Corpuscular Hemoglobin 30 pg (25-35) Mean Corpuscular Hemoglobin Concent 34 g/dL (31-37) Red Cell Distribution Width 14.0 % (11.5-14.5) Platelet Count 346 x10^3/uL (140-400) Neutrophils (%) (Auto) 91 % (31-73) Lymphocytes (%) (Auto) 7 % (24-48) Monocytes (%) (Auto) 3 % (0-9) Eosinophils (%) (Auto) 0 % (0-3) Basophils (%) (Auto) 0 % (0-3) Neutrophils # (Auto) 16.2 x10^3uL (1.8-7.7) Lymphocytes # (Auto) 1.2 x10^3/uL (1.0-4.8) Monocytes # (Auto) 0.5 x10^3/uL (0.0-1.1) Eosinophils # (Auto) 0.0 x10^3/uL (0.0-0.7) Basophils # (Auto) 0.0 x10^3/uL (0.0-0.2) Segmented Neutrophils % 81 % (35-66) Band Neutrophils % 8 % (0-9) Lymphocytes % 6 % (24-48) Atypical Lymphocytes % (Manual) 1 % (0-0) Monocytes % 4 % (0-10) Platelet Estimate Adequate (ADEQUATE) Sodium Level 139 mmol/L (136-145) Potassium Level 3.8 mmol/L (3.5-5.1) Chloride Level 97 mmol/L (98-107) Carbon Dioxide Level 30 mmol/L (21-32) Anion Gap 12 (6-14) Blood Urea Nitrogen 12 mg/dL (8-26) Creatinine 0.9 mg/dL (0.7-1.3) Estimated GFR (Cockcroft-Gault) 85.5 BUN/Creatinine Ratio 13 (6-20) Glucose Level 283 mg/dL (70-99) Calcium Level 9.6 mg/dL (8.5-10.1) Total Bilirubin 0.4 mg/dL (0.2-1.0) Aspartate Amino Transf (AST/SGOT) 13 U/L (15-37) Alanine Aminotransferase (ALT/SGPT) 27 U/L (16-63) Alkaline Phosphatase 109 U/L (46-116) Total Protein 8.2 g/dL (6.4-8.2) Albumin 3.9 g/dL (3.4-5.0) Albumin/Globulin Ratio 0.9 (1.0-1.7) Medications Current Medications Albuterol/ Ipratropium (Duoneb) 3 ml 1X ONCE NEB Last administered on at 08:33; Start 01/16/18 at 08:15; Stop 01/16/18 at 08:18; Status DC Prednisone (Prednisone) 50 mg 1X ONCE PO Last administered on 01/16/18at 08:26 ; Start 01/16/18 at 08:15; Stop 01/16/18 at 08:18; Status DC Ceftriaxone Sodium 50 ml @ 100 mls/hr 1X ONCE IV Last administered on at 09:31; Start 01/16/18 at 09:30; Stop 01/16/18 at 09:59; Status DC Albuterol Sulfate (Ventolin Neb Soln) 10 mg 1X ONCE CONT NEB Last administered on 01/16/18at 09:33; Start 01/16/18 at 09:30; Stop 01/16/18 at 09:31 ; Status DC Sodium Chloride 500 ml @ 500 mls/hr 1X ONCE IV Last administered on at 09:32; Start 01/16/18 at 09:30; Stop 01/16/18 at 10:29; Status DC Hydromorphone HCl (Dilaudid) 1 mg 1X ONCE IV ; Start 01/16/18 at 10:30; Stop 01/16/18 at 10:30; Status DC Sodium Chloride 1,000 ml @ 1,000 mls/hr 1X ONCE IV Last administered on at 10:41; Start 01/16/18 at 10:45; Stop 01/16/18 at 11:44; Status DC Azithromycin 250 ml @ 250 mls/hr 1X ONCE IV Last administered on 01/16/18at 12 :27; Start 01/16/18 at 11:00; Stop 01/16/18 at 11:59; Status DC Ondansetron HCl (Zofran) 4 mg PRN Q8HRS PRN IV NAUSEA/VOMITING; Start 01/16/18 at 11:00; Stop 01/17/18 at 10:59 Acetaminophen (Tylenol) 650 mg PRN Q4HRS PRN PO FEVER Last administered on 01/17at 06:14; Start 01/16/18 at 11:00; Stop 01/17/18 at 10:59 Albuterol/ Ipratropium (Duoneb) 3 ml RTQID NEB Last administered on 01/16/18at 15:18; Start 01/16/18 at 12:00; Stop 01/16/18 at 16:26; Status DC Methylprednisolone Sodium Succinate (SOLU-Medrol 125MG VIAL) 125 mg Q8HRS IV Last administered on 01/17/18at 06:08; Start 01/16/18 at 15:00 Budesonide (Pulmicort) 0.5 mg RTBID NEB Last administered on 01/17/18at 07:19; Start 01/16/18 at 20:00 Enoxaparin Sodium (Lovenox 40mg Syringe) 40 mg Q24H SQ Last administered on 01/16/18at 15:43; Start 01/16/18 at 15:00 Piperacillin Sod/ Tazobactam Sod 3.375 gm/Sodium Chloride 50 ml @ 100 mls/hr Q6HRS IV Last administered on 01/17/18at 06:08; Start 01/16/18 at 15:00 Levofloxacin/ Dextrose 100 ml @ 100 mls/hr Q24H IV Last administered on at 16:41; Start 01/16/18 at 16:00 Lactobacillus Rhamnosus (Culturelle) 1 cap BID PO Last administered on at 09:05; Start 01/16/18 at 21:00 Albuterol/ Ipratropium (Duoneb) 3 ml RTQID NEB Last administered on 01/17/18at 07:19; Start 01/16/18 at 20:00 Albuterol Sulfate (Ventolin Neb Soln) 2.5 mg PRN Q4HRS PRN NEB SHORTNESS OF BREATH; Start 01/16/18 at 16:30 Insulin Glargine (Lantus) 20 units 1X ONCE SQ Last administered on 01/16/18at 20:48; Start 01/16/18 at 20:00; Stop 01/16/18 at 20:01; Status DC Insulin Human Lispro (HumaLOG) 0-9 UNITS TIDWMEALS SQ Last administered on 01/17at 09:09; Start 01/17/18 at 08:00 Dextrose (Dextrose 50%-Water Syringe) 12.5 gm PRN Q15MIN PRN IV SEE COMMENTS; Start 01/16/18 at 19:45 Insulin Human Lispro (HumaLOG) 20 units 1X ONCE SQ Last administered on at 20:46; Start 01/16/18 at 20:00; Stop 01/16/18 at 20:01; Status DC Diphenhydramine HCl (Benadryl) 25 mg PRN Q6HRS PRN PO ITCHING Last administered on 01/16/18at 20:51; Start 01/16/18 at 20:30 Amlodipine Besylate (Norvasc) 5 mg DAILY PO ; Start 01/17/18 at 11:00 Losartan Potassium (Cozaar) 50 mg DAILY PO ; Start 01/17/18 at 11:00 Oxycodone/ Acetaminophen (Percocet 7.5/ 325) 1 tab QID PO ; Start 01/17/18 at 13 :00 Atorvastatin Calcium (Lipitor) 80 mg QHS PO ; Start 01/17/18 at 21:00 Metformin HCl (Glucophage) 1,000 mg BIDWMEALS PO ; Start 01/17/18 at 12:00 Active Scripts Active Reported Percocet 7.5-325 Mg Tablet (Oxycodone/Acetaminophen) 1 Each Tablet 1 Tab PO QID Amlodipine Besylate 5 Mg Tablet 5 Mg PO DAILY Metformin Hcl 1,000 Mg Tablet 1,000 Mg PO BIDWMEALS Losartan Potassium 50 Mg Tablet 50 Mg PO DAILY Atorvastatin Calcium 80 Mg Tablet 1 Tab PO DAILY Vitals/I & O Vital Sign - Last 24 Hours 01/16/18 01/16/18 01/16/18 01/16/18 11:30 11:30 12:19 15:01 Temp 98.4 99.4 98.4 99.4 Pulse 101 104 Resp 20 18 B/P (MAP) 174/75 (108) 133/80 (97) Pulse Ox 93 92 91 O2 Delivery Nasal Cannula Nasal Cannula Nasal Cannula Nasal Cannula O2 Flow Rate 4.0 4.0 2.0 4.0 01/16/18 01/16/18 01/16/18 01/16/18 15:18 19:00 20:00 20:08 Temp 98.5 98.5 Pulse 100 Resp 18 B/P (MAP) 173/86 (115) Pulse Ox 91 93 O2 Delivery Nasal Cannula Nasal Cannula Nasal Cannula Nasal Cannula O2 Flow Rate 2.0 4.0 2.0 2.0 01/16/18 01/17/18 01/17/18 01/17/18 23:00 03:00 07:00 07:20 Temp 97.8 97.5 97.6 97.8 97.5 97.6 Pulse 106 96 99 Resp 18 18 18 B/P (MAP) 155/84 (107) 169/81 (110) 168/92 (117) Pulse Ox 91 91 91 90 O2 Delivery Nasal Cannula Nasal Cannula Nasal Cannula Nasal Cannula O2 Flow Rate 4.0 4.0 4.0 2.0 Intake and Output 01/16/18 01/16/18 01/17/18 15:00 23:00 07:00 Intake Total 850 ml 500 ml Output Total 1300 ml 300 ml Balance 850 ml -800 ml -300 ml LISA JUDD MD Jan 17, 2018 10:35
[2018-01-17 11:00] VITALS: BP 185/88
[2018-01-17] MEDS: metFORMIN 500 MG TABLET PO SCH ×2 (11:05→16:52)
[2018-01-17] MEDS: oxyCODONE/APAP 7.5/325 1 TAB TABLET PO SCH ×3 (11:05→21:37)
[2018-01-17] MEDS: amLODIPine BESYLATE 5 MG TABLET PO SCH (11:06)
[2018-01-17] MEDS: LOSARTAN POTASSIUM 50 MG TABLET. PO SCH (11:06)
[2018-01-17] MEDS ORDERED: INSULIN LISPRO 300 UNITS/3 ML INSULN.PEN. SQ ONE (12:30)
[2018-01-17 15:00] VITALS: BP 164/92
[2018-01-17] MEDS: ENOXAPARIN 40 MG/0.4 ML SYRINGE. SQ SCH (15:32)
--- NOTE | 2018-01-17 15:48 | PDOC ---
PULMONARY PROGRESS NOTES Subjective PT FEELS BETTER LESS SOA AND WHEEZE Vitals Vital Signs Date Time Temp Pulse Resp B/P (MAP) Pulse Ox O2 Delivery O2 Flow Rate FiO2 01/17/18 15:00 98.2 107 20 164/92 (116) 89 Room Air 98.2 01/17/18 12:05 2.0 ROS: No Nausea, No Chest Pain, No Abdominal Pain, No Increase Cough General: Alert Lungs: Wheezing, Crackles Cardiovascular: S1, S2 Abdomen: Soft, Non-tender Neuro Exam: Alert Skin: Warm Labs Laboratory Tests Test 01/16/18 08:15 01/16/18 09:20 01/16/18 11:30 01/16/18 16:12 White Blood Count 7.0 x10^3/uL (4.0-11.0) Red Blood Count 4.54 x10^6/uL (4.30-5.70) Hemoglobin 13.4 g/dL (13.0-17.5) Hematocrit 40.0 % (39.0-53.0) Mean Corpuscular Volume 88 fL (79-100) Mean Corpuscular Hemoglobin 30 pg (25-35) Mean Corpuscular Hemoglobin Concent 34 g/dL (31-37) Red Cell Distribution Width 13.7 % (11.5-14.5) Platelet Count 302 x10^3/uL (140-400) Neutrophils (%) (Auto) 65 % (31-73) Lymphocytes (%) (Auto) 19 % (24-48) Monocytes (%) (Auto) 11 % (0-9) Eosinophils (%) (Auto) 4 % (0-3) Basophils (%) (Auto) 1 % (0-3) Neutrophils # (Auto) 4.6 x10^3uL (1.8-7.7) Lymphocytes # (Auto) 1.3 x10^3/uL (1.0-4.8) Monocytes # (Auto) 0.8 x10^3/uL (0.0-1.1) Eosinophils # (Auto) 0.3 x10^3/uL (0.0-0.7) Basophils # (Auto) 0.0 x10^3/uL (0.0-0.2) Influenza Type A Antigen Negative (NEGATIVE) Influenza Type B Antigen Negative (NEGATIVE) Sodium Level 140 mmol/L (136-145) Potassium Level 4.0 mmol/L (3.5-5.1) Chloride Level 100 mmol/L (98-107) Carbon Dioxide Level 31 mmol/L (21-32) Anion Gap 9 (6-14) Blood Urea Nitrogen 6 mg/dL (8-26) Creatinine 0.8 mg/dL (0.7-1.3) Estimated GFR (Cockcroft-Gault) 98.0 Glucose Level 201 mg/dL (70-99) Calcium Level 9.2 mg/dL (8.5-10.1) Troponin I Quantitative < 0.017 ng/mL (0.000-0.055) GQ-Xoh-A-Type Natriuretic Peptide 107 pg/mL (0-124) Glucose (Fingerstick) 231 mg/dL (70-99) 380 mg/dL (70-99) Test 01/16/18 19:43 01/16/18 20:39 01/16/18 21:22 01/16/18 22:35 Glucose (Fingerstick) 423 mg/dL (70-99) 407 mg/dL (70-99) 419 mg/dL (70-99) 370 mg/dL (70-99) Test 01/17/18 07:35 01/17/18 07:39 01/17/18 11:00 01/17/18 12:08 White Blood Count 17.8 x10^3/uL (4.0-11.0) Red Blood Count 4.63 x10^6/uL (4.30-5.70) Hemoglobin 13.9 g/dL (13.0-17.5) Hematocrit 40.8 % (39.0-53.0) Mean Corpuscular Volume 88 fL (79-100) Mean Corpuscular Hemoglobin 30 pg (25-35) Mean Corpuscular Hemoglobin Concent 34 g/dL (31-37) Red Cell Distribution Width 14.0 % (11.5-14.5) Platelet Count 346 x10^3/uL (140-400) Neutrophils (%) (Auto) 91 % (31-73) Lymphocytes (%) (Auto) 7 % (24-48) Monocytes (%) (Auto) 3 % (0-9) Eosinophils (%) (Auto) 0 % (0-3) Basophils (%) (Auto) 0 % (0-3) Neutrophils # (Auto) 16.2 x10^3uL (1.8-7.7) Lymphocytes # (Auto) 1.2 x10^3/uL (1.0-4.8) Monocytes # (Auto) 0.5 x10^3/uL (0.0-1.1) Eosinophils # (Auto) 0.0 x10^3/uL (0.0-0.7) Basophils # (Auto) 0.0 x10^3/uL (0.0-0.2) Segmented Neutrophils % 81 % (35-66) Band Neutrophils % 8 % (0-9) Lymphocytes % 6 % (24-48) Atypical Lymphocytes % (Manual) 1 % (0-0) Monocytes % 4 % (0-10) Platelet Estimate Adequate (ADEQUATE) Sodium Level 139 mmol/L (136-145) Potassium Level 3.8 mmol/L (3.5-5.1) Chloride Level 97 mmol/L (98-107) Carbon Dioxide Level 30 mmol/L (21-32) Anion Gap 12 (6-14) Blood Urea Nitrogen 12 mg/dL (8-26) Creatinine 0.9 mg/dL (0.7-1.3) Estimated GFR (Cockcroft-Gault) 85.5 BUN/Creatinine Ratio 13 (6-20) Glucose Level 283 mg/dL (70-99) Calcium Level 9.6 mg/dL (8.5-10.1) Total Bilirubin 0.4 mg/dL (0.2-1.0) Aspartate Amino Transf (AST/SGOT) 13 U/L (15-37) Alanine Aminotransferase (ALT/SGPT) 27 U/L (16-63) Alkaline Phosphatase 109 U/L (46-116) Total Protein 8.2 g/dL (6.4-8.2) Albumin 3.9 g/dL (3.4-5.0) Albumin/Globulin Ratio 0.9 (1.0-1.7) Glucose (Fingerstick) 273 mg/dL (70-99) 374 mg/dL (70-99) 388 mg/dL (70-99) Laboratory Tests Test 01/16/18 16:12 01/16/18 19:43 01/16/18 20:39 01/16/18 21:22 Glucose (Fingerstick) 380 mg/dL (70-99) 423 mg/dL (70-99) 407 mg/dL (70-99) 419 mg/dL (70-99) Test 01/16/18 22:35 01/17/18 07:35 01/17/18 07:39 01/17/18 11:00 Glucose (Fingerstick) 370 mg/dL (70-99) 273 mg/dL (70-99) 374 mg/dL (70-99) White Blood Count 17.8 x10^3/uL (4.0-11.0) Red Blood Count 4.63 x10^6/uL (4.30-5.70) Hemoglobin 13.9 g/dL (13.0-17.5) Hematocrit 40.8 % (39.0-53.0) Mean Corpuscular Volume 88 fL (79-100) Mean Corpuscular Hemoglobin 30 pg (25-35) Mean Corpuscular Hemoglobin Concent 34 g/dL (31-37) Red Cell Distribution Width 14.0 % (11.5-14.5) Platelet Count 346 x10^3/uL (140-400) Neutrophils (%) (Auto) 91 % (31-73) Lymphocytes (%) (Auto) 7 % (24-48) Monocytes (%) (Auto) 3 % (0-9) Eosinophils (%) (Auto) 0 % (0-3) Basophils (%) (Auto) 0 % (0-3) Neutrophils # (Auto) 16.2 x10^3uL (1.8-7.7) Lymphocytes # (Auto) 1.2 x10^3/uL (1.0-4.8) Monocytes # (Auto) 0.5 x10^3/uL (0.0-1.1) Eosinophils # (Auto) 0.0 x10^3/uL (0.0-0.7) Basophils # (Auto) 0.0 x10^3/uL (0.0-0.2) Segmented Neutrophils % 81 % (35-66) Band Neutrophils % 8 % (0-9) Lymphocytes % 6 % (24-48) Atypical Lymphocytes % (Manual) 1 % (0-0) Monocytes % 4 % (0-10) Platelet Estimate Adequate (ADEQUATE) Sodium Level 139 mmol/L (136-145) Potassium Level 3.8 mmol/L (3.5-5.1) Chloride Level 97 mmol/L (98-107) Carbon Dioxide Level 30 mmol/L (21-32) Anion Gap 12 (6-14) Blood Urea Nitrogen 12 mg/dL (8-26) Creatinine 0.9 mg/dL (0.7-1.3) Estimated GFR (Cockcroft-Gault) 85.5 BUN/Creatinine Ratio 13 (6-20) Glucose Level 283 mg/dL (70-99) Calcium Level 9.6 mg/dL (8.5-10.1) Total Bilirubin 0.4 mg/dL (0.2-1.0) Aspartate Amino Transf (AST/SGOT) 13 U/L (15-37) Alanine Aminotransferase (ALT/SGPT) 27 U/L (16-63) Alkaline Phosphatase 109 U/L (46-116) Total Protein 8.2 g/dL (6.4-8.2) Albumin 3.9 g/dL (3.4-5.0) Albumin/Globulin Ratio 0.9 (1.0-1.7) Test 01/17/18 12:08 Glucose (Fingerstick) 388 mg/dL (70-99) Medications Active Scripts Medications Dose Route/Sig Max Daily Dose Days Date Category Percocet 7.5-325 Mg Tablet (Oxycodone/Acetaminophen) 1 Each Tablet 1 Tab PO QID 01/16/18 Reported Amlodipine Besylate 5 Mg Tablet 5 Mg PO DAILY 01/16/18 Reported Metformin Hcl 1,000 Mg Tablet 1,000 Mg PO BIDWMEALS 01/16/18 Reported Losartan Potassium 50 Mg Tablet 50 Mg PO DAILY 01/16/18 Reported Atorvastatin Calcium 80 Mg Tablet 1 Tab PO DAILY 01/16/18 Reported Impression . IMPRESSION: 1. Acute hypoxemic respiratory failure. 2. Abnormal chest x-ray revealing possible cavitary lesion. 3. Acute exacerbation of chronic obstructive pulmonary disease. 4. Pneumonia, suspect gram negative. 5. Recent flu-like symptoms. 6. Tobacco dependence, in remission. 7. Obesity. 8. Hypertension. IMPRESSION: 1. No cavitary lesion. 2. Minimal bilateral lower lobe tree-in-bud opacities consistent with infectious/inflammatory bronchiolitis. Plan . CT REVIEWED NO CAVITY SOME TREE IN BUD COMPATIBLE WITH PNEUMONIA WILL CHANGE TO ORAL ANTIBX D/C IN AM FOLLOW UP IN OFFICE HOME WITH RX FOR SPIRIVA RESPIMAT LUCERO MENDOZA MD Jan 17, 2018 15:48
[2018-01-17 19:00] VITALS: BP 171/98
[2018-01-17] MEDS ORDERED: ATORVASTATIN CALCIUM 40 MG TABLET. PO SCH (21:00)
[2018-01-17] MEDS: AMOXICILLIN/K CLAV 875/125MG TABLET. PO SCH (21:37)
[2018-01-17] MEDS ORDERED: ZOLPIDEM 5 MG TABLET. PO PRN (21:45)
[2018-01-17 22:33] VITALS: BP 163/92
[2018-01-18 03:00] VITALS: BP 136/104
[2018-01-18 03:43] LABS: BASO % 0 % (0-3); EOS % 0 % (0-3); HEMOGLOBIN 13.2 g/dL (13.0-17.5); LYMPH # 0.9 x10^3/uL (1.0-4.8); LYMPH % 4 % (24-48); MEAN CORPUSCULAR HEMOGLOBIN 30 pg (25-35); MEAN CORPUSCULAR HGB CONC 34 g/dL (31-37); MEAN CORPUSCULAR VOLUME 88 fL (79-100); MONO # 0.7 x10^3/uL (0.0-1.1); MONO % 3 % (0-9); NEUT # 20.4 x10^3uL (1.8-7.7); NEUT % 93 % (31-73); PLATELET COUNT 339 x10^3/uL (140-400); RED BLOOD COUNT 4.42 x10^6/uL (4.30-5.70); RED CELL DISTRIBUTION WIDTH 14.2 % (11.5-14.5)
[2018-01-18 04:39] LABS: ALBUMIN 3.4 g/dL (3.4-5.0); ALBUMIN/GLOBULIN RATIO 0.8 (1.0-1.7); CALCIUM 9.1 mg/dL (8.5-10.1); GFR 75.7; TOTAL BILIRUBIN 0.3 mg/dL (0.2-1.0); TOTAL PROTEIN 7.6 g/dL (6.4-8.2)
[2018-01-18] MEDS: methylPREDNISolone SOD SUCC PF 125 MG/2 ML VIAL. IV SCH ×2 (06:09→14:06)
[2018-01-18] MEDS: ACETAMINOPHEN 325 MG TABLET. PO PRN ×2 (06:15→14:09)
[2018-01-18 07:00] VITALS: BP 149/90
[2018-01-18] MEDS: BUDESONIDE 0.5 MG/2 ML NEBU. NEB SCH (07:23)
[2018-01-18] MEDS: IPRATRPIUM/ALBUTEROL 0.5/2.5MG 3 ML NEBU. NEB SCH ×3 (07:23→15:37)
[2018-01-18] MEDS: metFORMIN 500 MG TABLET PO SCH (08:42)
[2018-01-18] MEDS: AMOXICILLIN/K CLAV 875/125MG TABLET. PO SCH (08:43)
[2018-01-18] MEDS: LACTOBACILLUS RHAMNOSUS GG 1 CAPSULE. PO SCH (08:43)
[2018-01-18] MEDS: oxyCODONE/APAP 7.5/325 1 TAB TABLET PO SCH ×2 (08:43→14:05)
[2018-01-18] MEDS: LOSARTAN POTASSIUM 50 MG TABLET. PO SCH (08:43)
[2018-01-18] MEDS: amLODIPine BESYLATE 5 MG TABLET PO SCH (08:44)
[2018-01-18] MEDS: INSULIN LISPRO 300 UNITS/3 ML INSULN.PEN. SQ SCH ×2 (08:49→12:07)
--- NOTE | 2018-01-18 09:50 | PDOC ---
PULMONARY PROGRESS NOTES Subjective PT FEELS BETTER LESS SOA AND WHEEZE Vitals Vital Signs Date Time Temp Pulse Resp B/P (MAP) Pulse Ox O2 Delivery O2 Flow Rate FiO2 01/18/18 08:44 97 149/90 01/18/18 08:43 Room Air 01/18/18 07:23 91 01/18/18 07:00 97.4 20 4.0 97.4 ROS: No Nausea, No Chest Pain, No Abdominal Pain, No Increase Cough General: Alert Lungs: Wheezing, Crackles Cardiovascular: S1, S2 Abdomen: Soft, Non-tender Neuro Exam: Alert Skin: Warm Labs Laboratory Tests Test 01/16/18 11:30 01/16/18 16:12 01/16/18 19:43 01/16/18 20:39 Glucose (Fingerstick) 231 mg/dL (70-99) 380 mg/dL (70-99) 423 mg/dL (70-99) 407 mg/dL (70-99) Test 01/16/18 21:22 01/16/18 22:35 01/17/18 07:35 01/17/18 07:39 Glucose (Fingerstick) 419 mg/dL (70-99) 370 mg/dL (70-99) 273 mg/dL (70-99) White Blood Count 17.8 x10^3/uL (4.0-11.0) Red Blood Count 4.63 x10^6/uL (4.30-5.70) Hemoglobin 13.9 g/dL (13.0-17.5) Hematocrit 40.8 % (39.0-53.0) Mean Corpuscular Volume 88 fL (79-100) Mean Corpuscular Hemoglobin 30 pg (25-35) Mean Corpuscular Hemoglobin Concent 34 g/dL (31-37) Red Cell Distribution Width 14.0 % (11.5-14.5) Platelet Count 346 x10^3/uL (140-400) Neutrophils (%) (Auto) 91 % (31-73) Lymphocytes (%) (Auto) 7 % (24-48) Monocytes (%) (Auto) 3 % (0-9) Eosinophils (%) (Auto) 0 % (0-3) Basophils (%) (Auto) 0 % (0-3) Neutrophils # (Auto) 16.2 x10^3uL (1.8-7.7) Lymphocytes # (Auto) 1.2 x10^3/uL (1.0-4.8) Monocytes # (Auto) 0.5 x10^3/uL (0.0-1.1) Eosinophils # (Auto) 0.0 x10^3/uL (0.0-0.7) Basophils # (Auto) 0.0 x10^3/uL (0.0-0.2) Segmented Neutrophils % 81 % (35-66) Band Neutrophils % 8 % (0-9) Lymphocytes % 6 % (24-48) Atypical Lymphocytes % (Manual) 1 % (0-0) Monocytes % 4 % (0-10) Platelet Estimate Adequate (ADEQUATE) Sodium Level 139 mmol/L (136-145) Potassium Level 3.8 mmol/L (3.5-5.1) Chloride Level 97 mmol/L (98-107) Carbon Dioxide Level 30 mmol/L (21-32) Anion Gap 12 (6-14) Blood Urea Nitrogen 12 mg/dL (8-26) Creatinine 0.9 mg/dL (0.7-1.3) Estimated GFR (Cockcroft-Gault) 85.5 BUN/Creatinine Ratio 13 (6-20) Glucose Level 283 mg/dL (70-99) Calcium Level 9.6 mg/dL (8.5-10.1) Total Bilirubin 0.4 mg/dL (0.2-1.0) Aspartate Amino Transf (AST/SGOT) 13 U/L (15-37) Alanine Aminotransferase (ALT/SGPT) 27 U/L (16-63) Alkaline Phosphatase 109 U/L (46-116) Total Protein 8.2 g/dL (6.4-8.2) Albumin 3.9 g/dL (3.4-5.0) Albumin/Globulin Ratio 0.9 (1.0-1.7) Test 01/17/18 11:00 01/17/18 12:08 01/17/18 16:34 01/17/18 20:26 Glucose (Fingerstick) 374 mg/dL (70-99) 388 mg/dL (70-99) 337 mg/dL (70-99) 294 mg/dL (70-99) Test 01/18/18 03:20 11/8/18 07:18 White Blood Count 22.0 x10^3/uL (4.0-11.0) Red Blood Count 4.42 x10^6/uL (4.30-5.70) Hemoglobin 13.2 g/dL (13.0-17.5) Hematocrit 39.0 % (39.0-53.0) Mean Corpuscular Volume 88 fL (79-100) Mean Corpuscular Hemoglobin 30 pg (25-35) Mean Corpuscular Hemoglobin Concent 34 g/dL (31-37) Red Cell Distribution Width 14.2 % (11.5-14.5) Platelet Count 339 x10^3/uL (140-400) Neutrophils (%) (Auto) 93 % (31-73) Lymphocytes (%) (Auto) 4 % (24-48) Monocytes (%) (Auto) 3 % (0-9) Eosinophils (%) (Auto) 0 % (0-3) Basophils (%) (Auto) 0 % (0-3) Neutrophils # (Auto) 20.4 x10^3uL (1.8-7.7) Lymphocytes # (Auto) 0.9 x10^3/uL (1.0-4.8) Monocytes # (Auto) 0.7 x10^3/uL (0.0-1.1) Eosinophils # (Auto) 0.0 x10^3/uL (0.0-0.7) Basophils # (Auto) 0.0 x10^3/uL (0.0-0.2) Sodium Level 138 mmol/L (136-145) Potassium Level 4.0 mmol/L (3.5-5.1) Chloride Level 99 mmol/L (98-107) Carbon Dioxide Level 29 mmol/L (21-32) Anion Gap 10 (6-14) Blood Urea Nitrogen 19 mg/dL (8-26) Creatinine 1.0 mg/dL (0.7-1.3) Estimated GFR (Cockcroft-Gault) 75.7 BUN/Creatinine Ratio 19 (6-20) Glucose Level 300 mg/dL (70-99) Calcium Level 9.1 mg/dL (8.5-10.1) Total Bilirubin 0.3 mg/dL (0.2-1.0) Aspartate Amino Transf (AST/SGOT) 19 U/L (15-37) Alanine Aminotransferase (ALT/SGPT) 22 U/L (16-63) Alkaline Phosphatase 81 U/L (46-116) Total Protein 7.6 g/dL (6.4-8.2) Albumin 3.4 g/dL (3.4-5.0) Albumin/Globulin Ratio 0.8 (1.0-1.7) Glucose (Fingerstick) 264 mg/dL (70-99) Laboratory Tests Test 01/17/18 11:00 01/17/18 12:08 01/17/18 16:34 01/17/18 20:26 Glucose (Fingerstick) 374 mg/dL (70-99) 388 mg/dL (70-99) 337 mg/dL (70-99) 294 mg/dL (70-99) Test 01/18/18 03:20 01/18/18 07:18 White Blood Count 22.0 x10^3/uL (4.0-11.0) Red Blood Count 4.42 x10^6/uL (4.30-5.70) Hemoglobin 13.2 g/dL (13.0-17.5) Hematocrit 39.0 % (39.0-53.0) Mean Corpuscular Volume 88 fL (79-100) Mean Corpuscular Hemoglobin 30 pg (25-35) Mean Corpuscular Hemoglobin Concent 34 g/dL (31-37) Red Cell Distribution Width 14.2 % (11.5-14.5) Platelet Count 339 x10^3/uL (140-400) Neutrophils (%) (Auto) 93 % (31-73) Lymphocytes (%) (Auto) 4 % (24-48) Monocytes (%) (Auto) 3 % (0-9) Eosinophils (%) (Auto) 0 % (0-3) Basophils (%) (Auto) 0 % (0-3) Neutrophils # (Auto) 20.4 x10^3uL (1.8-7.7) Lymphocytes # (Auto) 0.9 x10^3/uL (1.0-4.8) Monocytes # (Auto) 0.7 x10^3/uL (0.0-1.1) Eosinophils # (Auto) 0.0 x10^3/uL (0.0-0.7) Basophils # (Auto) 0.0 x10^3/uL (0.0-0.2) Sodium Level 138 mmol/L (136-145) Potassium Level 4.0 mmol/L (3.5-5.1) Chloride Level 99 mmol/L (98-107) Carbon Dioxide Level 29 mmol/L (21-32) Anion Gap 10 (6-14) Blood Urea Nitrogen 19 mg/dL (8-26) Creatinine 1.0 mg/dL (0.7-1.3) Estimated GFR (Cockcroft-Gault) 75.7 BUN/Creatinine Ratio 19 (6-20) Glucose Level 300 mg/dL (70-99) Calcium Level 9.1 mg/dL (8.5-10.1) Total Bilirubin 0.3 mg/dL (0.2-1.0) Aspartate Amino Transf (AST/SGOT) 19 U/L (15-37) Alanine Aminotransferase (ALT/SGPT) 22 U/L (16-63) Alkaline Phosphatase 81 U/L (46-116) Total Protein 7.6 g/dL (6.4-8.2) Albumin 3.4 g/dL (3.4-5.0) Albumin/Globulin Ratio 0.8 (1.0-1.7) Glucose (Fingerstick) 264 mg/dL (70-99) Medications Active Scripts Medications Dose Route/Sig Max Daily Dose Days Date Category Percocet 7.5-325 Mg Tablet (Oxycodone/Acetaminophen) 1 Each Tablet 1 Tab PO QID 01/16/18 Reported Amlodipine Besylate 5 Mg Tablet 5 Mg PO DAILY 01/16/18 Reported Metformin Hcl 1,000 Mg Tablet 1,000 Mg PO BIDWMEALS 01/16/18 Reported Losartan Potassium 50 Mg Tablet 50 Mg PO DAILY 01/16/18 Reported Atorvastatin Calcium 80 Mg Tablet 1 Tab PO DAILY 01/16/18 Reported Impression . IMPRESSION: 1. Acute hypoxemic respiratory failure. 2. Abnormal chest x-ray revealing possible cavitary lesion. CT NO LESION 3. Acute exacerbation of chronic obstructive pulmonary disease. 4. Pneumonia, suspect gram negative. 5. Recent flu-like symptoms. 6. Tobacco dependence, in remission. 7. Obesity. 8. Hypertension. IMPRESSION: 1. No cavitary lesion. 2. Minimal bilateral lower lobe tree-in-bud opacities consistent with infectious/inflammatory bronchiolitis. Plan . CT REVIEWED NO CAVITY D/C HOME ON ANTIBX FOLLOW UP IN OFFICE PT GIVEN APPT SOME TREE IN BUD COMPATIBLE WITH PNEUMONIA WILL CHANGE TO ORAL ANTIBX HOME WITH RX FOR SPIRIVA RESPIMAT LUCERO MENDOZA MD Jan 18, 2018 09:50
--- NOTE | 2018-01-18 10:11 | PDOC ---
PROGRESS NOTES History of Present Illness History of Present Illness Assessment/Plan Assessment/Plan impression 1. acute hypoxic resp failure 2. COPD EXAC 3. REMOTE TOBACCO ABUSE 4. diabetes PLAN 1. TELE 2 ADMIT 3. DUONEBS QID 4. EMPERIC IV ANTIBIOTICS 5. IV STEROID TAPER to po today 6. SQ LOVENOX 7. o2 support 8. ct chest reviewed 9. ss insulin see pulm 2-3 weeks Vitals Vitals Vital Signs Date Time Temp Pulse Resp B/P (MAP) Pulse Ox O2 Delivery O2 Flow Rate FiO2 01/18/18 08:44 97 149/90 01/18/18 08:43 Room Air 01/18/18 07:23 91 01/18/18 07:00 97.4 20 4.0 97.4 Physical Exam General: Alert, Oriented X3, Cooperative, No acute distress, mild distress Heart: Regular rate Lungs: Clear, Wheezing, Crackles Abdomen: Normal bowel sounds, Soft, No tenderness Extremities: No clubbing, No cyanosis, No edema Skin: No breakdown Labs LABS Laboratory Tests Test 01/17/18 11:00 01/17/18 12:08 01/17/18 16:34 01/17/18 20:26 Glucose (Fingerstick) 374 mg/dL (70-99) 388 mg/dL (70-99) 337 mg/dL (70-99) 294 mg/dL (70-99) Test 01/18/18 03:20 01/18/18 07:18 White Blood Count 22.0 x10^3/uL (4.0-11.0) Red Blood Count 4.42 x10^6/uL (4.30-5.70) Hemoglobin 13.2 g/dL (13.0-17.5) Hematocrit 39.0 % (39.0-53.0) Mean Corpuscular Volume 88 fL (79-100) Mean Corpuscular Hemoglobin 30 pg (25-35) Mean Corpuscular Hemoglobin Concent 34 g/dL (31-37) Red Cell Distribution Width 14.2 % (11.5-14.5) Platelet Count 339 x10^3/uL (140-400) Neutrophils (%) (Auto) 93 % (31-73) Lymphocytes (%) (Auto) 4 % (24-48) Monocytes (%) (Auto) 3 % (0-9) Eosinophils (%) (Auto) 0 % (0-3) Basophils (%) (Auto) 0 % (0-3) Neutrophils # (Auto) 20.4 x10^3uL (1.8-7.7) Lymphocytes # (Auto) 0.9 x10^3/uL (1.0-4.8) Monocytes # (Auto) 0.7 x10^3/uL (0.0-1.1) Eosinophils # (Auto) 0.0 x10^3/uL (0.0-0.7) Basophils # (Auto) 0.0 x10^3/uL (0.0-0.2) Sodium Level 138 mmol/L (136-145) Potassium Level 4.0 mmol/L (3.5-5.1) Chloride Level 99 mmol/L (98-107) Carbon Dioxide Level 29 mmol/L (21-32) Anion Gap 10 (6-14) Blood Urea Nitrogen 19 mg/dL (8-26) Creatinine 1.0 mg/dL (0.7-1.3) Estimated GFR (Cockcroft-Gault) 75.7 BUN/Creatinine Ratio 19 (6-20) Glucose Level 300 mg/dL (70-99) Calcium Level 9.1 mg/dL (8.5-10.1) Total Bilirubin 0.3 mg/dL (0.2-1.0) Aspartate Amino Transf (AST/SGOT) 19 U/L (15-37) Alanine Aminotransferase (ALT/SGPT) 22 U/L (16-63) Alkaline Phosphatase 81 U/L (46-116) Total Protein 7.6 g/dL (6.4-8.2) Albumin 3.4 g/dL (3.4-5.0) Albumin/Globulin Ratio 0.8 (1.0-1.7) Glucose (Fingerstick) 264 mg/dL (70-99) Assessment and Plan Assessmemt and Plan Problems Medical Problems: (1) Community acquired pneumonia Status: Acute Comment Review of Relevant I have reviewed the following items rubén (where applicable) has been applied. Labs Laboratory Tests Test 01/16/18 11:30 01/16/18 16:12 01/16/18 19:43 01/16/18 20:39 Glucose (Fingerstick) 231 mg/dL (70-99) 380 mg/dL (70-99) 423 mg/dL (70-99) 407 mg/dL (70-99) Test 01/16/18 21:22 01/16/18 22:35 01/17/18 07:35 01/17/18 07:39 Glucose (Fingerstick) 419 mg/dL (70-99) 370 mg/dL (70-99) 273 mg/dL (70-99) White Blood Count 17.8 x10^3/uL (4.0-11.0) Red Blood Count 4.63 x10^6/uL (4.30-5.70) Hemoglobin 13.9 g/dL (13.0-17.5) Hematocrit 40.8 % (39.0-53.0) Mean Corpuscular Volume 88 fL (79-100) Mean Corpuscular Hemoglobin 30 pg (25-35) Mean Corpuscular Hemoglobin Concent 34 g/dL (31-37) Red Cell Distribution Width 14.0 % (11.5-14.5) Platelet Count 346 x10^3/uL (140-400) Neutrophils (%) (Auto) 91 % (31-73) Lymphocytes (%) (Auto) 7 % (24-48) Monocytes (%) (Auto) 3 % (0-9) Eosinophils (%) (Auto) 0 % (0-3) Basophils (%) (Auto) 0 % (0-3) Neutrophils # (Auto) 16.2 x10^3uL (1.8-7.7) Lymphocytes # (Auto) 1.2 x10^3/uL (1.0-4.8) Monocytes # (Auto) 0.5 x10^3/uL (0.0-1.1) Eosinophils # (Auto) 0.0 x10^3/uL (0.0-0.7) Basophils # (Auto) 0.0 x10^3/uL (0.0-0.2) Segmented Neutrophils % 81 % (35-66) Band Neutrophils % 8 % (0-9) Lymphocytes % 6 % (24-48) Atypical Lymphocytes % (Manual) 1 % (0-0) Monocytes % 4 % (0-10) Platelet Estimate Adequate (ADEQUATE) Sodium Level 139 mmol/L (136-145) Potassium Level 3.8 mmol/L (3.5-5.1) Chloride Level 97 mmol/L (98-107) Carbon Dioxide Level 30 mmol/L (21-32) Anion Gap 12 (6-14) Blood Urea Nitrogen 12 mg/dL (8-26) Creatinine 0.9 mg/dL (0.7-1.3) Estimated GFR (Cockcroft-Gault) 85.5 BUN/Creatinine Ratio 13 (6-20) Glucose Level 283 mg/dL (70-99) Calcium Level 9.6 mg/dL (8.5-10.1) Total Bilirubin 0.4 mg/dL (0.2-1.0) Aspartate Amino Transf (AST/SGOT) 13 U/L (15-37) Alanine Aminotransferase (ALT/SGPT) 27 U/L (16-63) Alkaline Phosphatase 109 U/L (46-116) Total Protein 8.2 g/dL (6.4-8.2) Albumin 3.9 g/dL (3.4-5.0) Albumin/Globulin Ratio 0.9 (1.0-1.7) Test 01/17/18 11:00 01/17/18 12:08 01/17/18 16:34 01/17/18 20:26 Glucose (Fingerstick) 374 mg/dL (70-99) 388 mg/dL (70-99) 337 mg/dL (70-99) 294 mg/dL (70-99) Test 01/18/18 03:20 01/18/18 07:18 White Blood Count 22.0 x10^3/uL (4.0-11.0) Red Blood Count 4.42 x10^6/uL (4.30-5.70) Hemoglobin 13.2 g/dL (13.0-17.5) Hematocrit 39.0 % (39.0-53.0) Mean Corpuscular Volume 88 fL (79-100) Mean Corpuscular Hemoglobin 30 pg (25-35) Mean Corpuscular Hemoglobin Concent 34 g/dL (31-37) Red Cell Distribution Width 14.2 % (11.5-14.5) Platelet Count 339 x10^3/uL (140-400) Neutrophils (%) (Auto) 93 % (31-73) Lymphocytes (%) (Auto) 4 % (24-48) Monocytes (%) (Auto) 3 % (0-9) Eosinophils (%) (Auto) 0 % (0-3) Basophils (%) (Auto) 0 % (0-3) Neutrophils # (Auto) 20.4 x10^3uL (1.8-7.7) Lymphocytes # (Auto) 0.9 x10^3/uL (1.0-4.8) Monocytes # (Auto) 0.7 x10^3/uL (0.0-1.1) Eosinophils # (Auto) 0.0 x10^3/uL (0.0-0.7) Basophils # (Auto) 0.0 x10^3/uL (0.0-0.2) Sodium Level 138 mmol/L (136-145) Potassium Level 4.0 mmol/L (3.5-5.1) Chloride Level 99 mmol/L (98-107) Carbon Dioxide Level 29 mmol/L (21-32) Anion Gap 10 (6-14) Blood Urea Nitrogen 19 mg/dL (8-26) Creatinine 1.0 mg/dL (0.7-1.3) Estimated GFR (Cockcroft-Gault) 75.7 BUN/Creatinine Ratio 19 (6-20) Glucose Level 300 mg/dL (70-99) Calcium Level 9.1 mg/dL (8.5-10.1) Total Bilirubin 0.3 mg/dL (0.2-1.0) Aspartate Amino Transf (AST/SGOT) 19 U/L (15-37) Alanine Aminotransferase (ALT/SGPT) 22 U/L (16-63) Alkaline Phosphatase 81 U/L (46-116) Total Protein 7.6 g/dL (6.4-8.2) Albumin 3.4 g/dL (3.4-5.0) Albumin/Globulin Ratio 0.8 (1.0-1.7) Glucose (Fingerstick) 264 mg/dL (70-99) Laboratory Tests Test 01/17/18 11:00 01/17/18 12:08 01/17/18 16:34 01/17/18 20:26 Glucose (Fingerstick) 374 mg/dL (70-99) 388 mg/dL (70-99) 337 mg/dL (70-99) 294 mg/dL (70-99) Test 01/18/18 03:20 11/8/18 07:18 White Blood Count 22.0 x10^3/uL (4.0-11.0) Red Blood Count 4.42 x10^6/uL (4.30-5.70) Hemoglobin 13.2 g/dL (13.0-17.5) Hematocrit 39.0 % (39.0-53.0) Mean Corpuscular Volume 88 fL (79-100) Mean Corpuscular Hemoglobin 30 pg (25-35) Mean Corpuscular Hemoglobin Concent 34 g/dL (31-37) Red Cell Distribution Width 14.2 % (11.5-14.5) Platelet Count 339 x10^3/uL (140-400) Neutrophils (%) (Auto) 93 % (31-73) Lymphocytes (%) (Auto) 4 % (24-48) Monocytes (%) (Auto) 3 % (0-9) Eosinophils (%) (Auto) 0 % (0-3) Basophils (%) (Auto) 0 % (0-3) Neutrophils # (Auto) 20.4 x10^3uL (1.8-7.7) Lymphocytes # (Auto) 0.9 x10^3/uL (1.0-4.8) Monocytes # (Auto) 0.7 x10^3/uL (0.0-1.1) Eosinophils # (Auto) 0.0 x10^3/uL (0.0-0.7) Basophils # (Auto) 0.0 x10^3/uL (0.0-0.2) Sodium Level 138 mmol/L (136-145) Potassium Level 4.0 mmol/L (3.5-5.1) Chloride Level 99 mmol/L (98-107) Carbon Dioxide Level 29 mmol/L (21-32) Anion Gap 10 (6-14) Blood Urea Nitrogen 19 mg/dL (8-26) Creatinine 1.0 mg/dL (0.7-1.3) Estimated GFR (Cockcroft-Gault) 75.7 BUN/Creatinine Ratio 19 (6-20) Glucose Level 300 mg/dL (70-99) Calcium Level 9.1 mg/dL (8.5-10.1) Total Bilirubin 0.3 mg/dL (0.2-1.0) Aspartate Amino Transf (AST/SGOT) 19 U/L (15-37) Alanine Aminotransferase (ALT/SGPT) 22 U/L (16-63) Alkaline Phosphatase 81 U/L (46-116) Total Protein 7.6 g/dL (6.4-8.2) Albumin 3.4 g/dL (3.4-5.0) Albumin/Globulin Ratio 0.8 (1.0-1.7) Glucose (Fingerstick) 264 mg/dL (70-99) Microbiology 01/16/18 Blood Culture - Preliminary, Resulted NO GROWTH AFTER 1 DAY Medications Current Medications Albuterol/ Ipratropium (Duoneb) 3 ml 1X ONCE NEB Last administered on at 08:33; Start 01/16/18 at 08:15; Stop 01/16/18 at 08:18; Status DC Prednisone (Prednisone) 50 mg 1X ONCE PO Last administered on 01/16/18at 08:26 ; Start 01/16/18 at 08:15; Stop 01/16/18 at 08:18; Status DC Ceftriaxone Sodium 50 ml @ 100 mls/hr 1X ONCE IV Last administered on at 09:31; Start 01/16/18 at 09:30; Stop 01/16/18 at 09:59; Status DC Albuterol Sulfate (Ventolin Neb Soln) 10 mg 1X ONCE CONT NEB Last administered on 01/16/18at 09:33; Start 01/16/18 at 09:30; Stop 01/16/18 at 09:31 ; Status DC Sodium Chloride 500 ml @ 500 mls/hr 1X ONCE IV Last administered on at 09:32; Start 01/16/18 at 09:30; Stop 01/16/18 at 10:29; Status DC Hydromorphone HCl (Dilaudid) 1 mg 1X ONCE IV ; Start 01/16/18 at 10:30; Stop 01/16/18 at 10:30; Status DC Sodium Chloride 1,000 ml @ 1,000 mls/hr 1X ONCE IV Last administered on at 10:41; Start 01/16/18 at 10:45; Stop 01/16/18 at 11:44; Status DC Azithromycin 250 ml @ 250 mls/hr 1X ONCE IV Last administered on 01/16/18at 12 :27; Start 01/16/18 at 11:00; Stop 01/16/18 at 11:59; Status DC Ondansetron HCl (Zofran) 4 mg PRN Q8HRS PRN IV NAUSEA/VOMITING; Start 01/16/18 at 11:00; Stop 01/17/18 at 10:59; Status DC Acetaminophen (Tylenol) 650 mg PRN Q4HRS PRN PO FEVER Last administered on 01/17at 06:14; Start 01/16/18 at 11:00; Stop 01/17/18 at 10:59; Status DC Albuterol/ Ipratropium (Duoneb) 3 ml RTQID NEB Last administered on 01/16/18at 15:18; Start 01/16/18 at 12:00; Stop 01/16/18 at 16:26; Status DC Methylprednisolone Sodium Succinate (SOLU-Medrol 125MG VIAL) 125 mg Q8HRS IV Last administered on 01/17/18at 15:32; Start 01/16/18 at 15:00; Stop 01/17/18 at 15:58; Status DC Budesonide (Pulmicort) 0.5 mg RTBID NEB Last administered on 01/18/18at 07:23; Start 01/16/18 at 20:00 Enoxaparin Sodium (Lovenox 40mg Syringe) 40 mg Q24H SQ Last administered on 01/17/18at 15:32; Start 01/16/18 at 15:00 Piperacillin Sod/ Tazobactam Sod 3.375 gm/Sodium Chloride 50 ml @ 100 mls/hr Q6HRS IV Last administered on 01/17/18at 12:10; Start 01/16/18 at 15:00; Stop 01/17/18 at 16:51; Status DC Levofloxacin/ Dextrose 100 ml @ 100 mls/hr Q24H IV Last administered on at 15:32; Start 01/16/18 at 16:00; Stop 01/17/18 at 16:51; Status DC Lactobacillus Rhamnosus (Culturelle) 1 cap BID PO Last administered on at 08:43; Start 01/16/18 at 21:00 Albuterol/ Ipratropium (Duoneb) 3 ml RTQID NEB Last administered on 01/18/18 07:23; Start 01/16/18 at 20:00 Albuterol Sulfate (Ventolin Neb Soln) 2.5 mg PRN Q4HRS PRN NEB SHORTNESS OF BREATH; Start 01/16/18 at 16:30 Insulin Glargine (Lantus) 20 units 1X ONCE SQ Last administered on 01/16/18 20:48; Start 01/16/18 at 20:00; Stop 01/16/18 at 20:01; Status DC Insulin Human Lispro (HumaLOG) 0-9 UNITS TIDWMEALS SQ Last administered on 01/18 08:49; Start 01/17/18 at 08:00 Dextrose (Dextrose 50%-Water Syringe) 12.5 gm PRN Q15MIN PRN IV SEE COMMENTS; Start 01/16/18 at 19:45 Insulin Human Lispro (HumaLOG) 20 units 1X ONCE SQ Last administered on 20:46; Start 01/16/18 at 20:00; Stop 01/16/18 at 20:01; Status DC Diphenhydramine HCl (Benadryl) 25 mg PRN Q6HRS PRN PO ITCHING Last administered on 01/16/18 20:51; Start 01/16/18 at 20:30 Amlodipine Besylate (Norvasc) 5 mg DAILY PO Last administered on 01/18/18 08: 44; Start 01/17/18 at 11:00 Losartan Potassium (Cozaar) 50 mg DAILY PO Last administered on 01/18/18 08:43 ; Start 01/17/18 at 11:00 Oxycodone/ Acetaminophen (Percocet 7.5/ 325) 1 tab QID PO Last administered on 01/18/18 08:43; Start 01/17/18 at 11:00 Atorvastatin Calcium (Lipitor) 80 mg QHS PO Last administered on 01/17/18 21: 47; Start 01/17/18 at 21:00 Metformin HCl (Glucophage) 1,000 mg BIDWMEALS PO Last administered on 08:42; Start 01/17/18 at 12:00 Acetaminophen (Tylenol) 650 mg PRN Q6HRS PRN PO Headache, fever Last administered on 11/8/18at 06:15; Start 01/17/18 at 11:15 Insulin Human Lispro (HumaLOG) 2 units 1X ONCE SQ Last administered on at 13:06; Start 01/17/18 at 12:30; Stop 01/17/18 at 12:38; Status DC Methylprednisolone Sodium Succinate (SOLU-Medrol 125MG VIAL) 62.5 mg Q8HRS IV Last administered on 01/18/18at 06:09; Start 01/17/18 at 22:00 Amoxicillin/ Clavulanate Potassium (Augmentin 875/ 125mg) 1 tab BID PO Last administered on 01/18/18at 08:43; Start 01/17/18 at 21:00 Zolpidem Tartrate (Ambien) 5 mg PRN QHS PRN PO INSOMNIA Last administered on at 21:56; Start 01/17/18 at 21:45 Active Scripts Active Reported Percocet 7.5-325 Mg Tablet (Oxycodone/Acetaminophen) 1 Each Tablet 1 Tab PO QID Amlodipine Besylate 5 Mg Tablet 5 Mg PO DAILY Metformin Hcl 1,000 Mg Tablet 1,000 Mg PO BIDWMEALS Losartan Potassium 50 Mg Tablet 50 Mg PO DAILY Atorvastatin Calcium 80 Mg Tablet 1 Tab PO DAILY Vitals/I & O Vital Sign - Last 24 Hours 01/17/18 01/17/18 01/17/18 01/17/18 11:00 11:05 11:06 11:06 Temp 97.5 97.5 Pulse 91 91 91 Resp 18 18 B/P (MAP) 185/88 (120) 185/88 185/88 Pulse Ox 92 90 O2 Delivery Nasal Cannula Nasal Cannula O2 Flow Rate 4.0 2.0 01/17/18 01/17/18 01/17/18 01/17/18 11:15 12:05 15:00 15:44 Temp 98.2 98.2 Pulse 107 Resp 20 B/P (MAP) 164/92 (116) Pulse Ox 91 91 89 92 O2 Delivery Nasal Cannula Room Air Nasal Cannula O2 Flow Rate 2.0 2.0 01/17/18 01/17/18 01/17/18 01/17/18 16:53 17:53 19:00 19:30 Temp 97.6 97.6 Pulse 103 Resp 18 18 20 B/P (MAP) 171/98 (122) Pulse Ox 92 93 93 O2 Delivery Nasal Cannula Nasal Cannula Nasal Cannula O2 Flow Rate 2.0 4.0 2.0 01/17/18 01/17/18 01/17/18 01/17/18 20:00 21:37 22:33 22:37 Temp 97.3 97.3 B/P (MAP) 163/92 (115) O2 Delivery Nasal Cannula Nasal Cannula Nasal Cannula O2 Flow Rate 2.0 2.0 2.0 01/18/18 01/18/18 01/18/18 01/18/18 03:00 07:00 07:23 08:43 Temp 97.6 97.4 97.6 97.4 Pulse 100 97 97 Resp 19 20 B/P (MAP) 136/104 (115) 149/90 (109) 149/90 Pulse Ox 92 93 91 O2 Delivery Room Air Nasal Cannula Room Air O2 Flow Rate 4.0 01/18/18 01/18/18 08:43 08:44 Pulse 97 B/P (MAP) 149/90 O2 Delivery Room Air Intake and Output 01/17/18 01/17/18 01/18/18 15:00 23:00 07:00 Intake Total 540 ml 360 ml 800 ml Output Total 300 ml 300 ml Balance 240 ml 60 ml 800 ml LISA JUDD MD Jan 18, 2018 10:11
[2018-01-18 11:00] VITALS: BP 166/94
--- NOTE | 2018-01-18 14:25 | PDOC3 ---
Discharge Summary Date of Admission: Jan 16, 2018 Date of Discharge: Jan 18, 2018 Follow-Up: By telephone Admitting Diagnosis comment: History of Present Illness History of Present Illness Assessment/Plan Assessment/Plan impression 1. acute hypoxic resp failure 2. COPD EXAC, improved 3. REMOTE TOBACCO ABUSE 4. diabetes PLAN 1. TELE 2 ADMIT 3. DUONEBS QID 4. EMPERIC IV ANTIBIOTICS 5. IV STEROID TAPER to po today 6. SQ LOVENOX 7. o2 support 8. [address] chest reviewed 9. ss insulin see pulm 2-3 weeks Vitals on room air Vitals Vital Signs Date Time Temp Pulse Resp B/P (MAP) Pulse Ox O2 Delivery O2 Flow Rate FiO2 01/18/18 08:44 97 149/90 01/18/18 08:43 Room Air 01/18/18 07:23 91 01/18/18 07:00 97.4 20 4.0 97.4 Physical Exam General: Alert, Oriented X3, Cooperative, No acute distress, mild distress Heart: Regular rate Lungs: Clear, Abdomen: Normal bowel sounds, Soft, No tenderness Extremities: No clubbing, No cyanosis, No edema Skin: No breakdown Labs FINAL DIAGNOSIS Problems Medical Problems: (1) Community acquired pneumonia Status: Acute Brief Hospital Course Mr. Brady is a 62 old [sex] who presented with [ ] CONDITION AT DISCHARGE: Improved Discharge Medications Current Medications Albuterol/ Ipratropium (Duoneb) 3 ml 1X ONCE NEB Last administered on at 08:33; Start 01/16/18 at 08:15; Stop 01/16/18 at 08:18; Status DC Prednisone (Prednisone) 50 mg 1X ONCE PO Last administered on 01/16/18at 08:26 ; Start 01/16/18 at 08:15; Stop 01/16/18 at 08:18; Status DC Ceftriaxone Sodium 50 ml @ 100 mls/hr 1X ONCE IV Last administered on at 09:31; Start 01/16/18 at 09:30; Stop 01/16/18 at 09:59; Status DC Albuterol Sulfate (Ventolin Neb Soln) 10 mg 1X ONCE CONT NEB Last administered on 01/16/18at 09:33; Start 01/16/18 at 09:30; Stop 01/16/18 at 09:31 ; Status DC Sodium Chloride 500 ml @ 500 mls/hr 1X ONCE IV Last administered on at 09:32; Start 01/16/18 at 09:30; Stop 01/16/18 at 10:29; Status DC Hydromorphone HCl (Dilaudid) 1 mg 1X ONCE IV ; Start 01/16/18 at 10:30; Stop 01/16/18 at 10:30; Status DC Sodium Chloride 1,000 ml @ 1,000 mls/hr 1X ONCE IV Last administered on at 10:41; Start 01/16/18 at 10:45; Stop 01/16/18 at 11:44; Status DC Azithromycin 250 ml @ 250 mls/hr 1X ONCE IV Last administered on 01/16/18at 12 :27; Start 01/16/18 at 11:00; Stop 01/16/18 at 11:59; Status DC Ondansetron HCl (Zofran) 4 mg PRN Q8HRS PRN IV NAUSEA/VOMITING; Start 01/16/18 at 11:00; Stop 01/17/18 at 10:59; Status DC Acetaminophen (Tylenol) 650 mg PRN Q4HRS PRN PO FEVER Last administered on 01/17at 06:14; Start 01/16/18 at 11:00; Stop 01/17/18 at 10:59; Status DC Albuterol/ Ipratropium (Duoneb) 3 ml RTQID NEB Last administered on 01/16/18at 15:18; Start 01/16/18 at 12:00; Stop 01/16/18 at 16:26; Status DC Methylprednisolone Sodium Succinate (SOLU-Medrol 125MG VIAL) 125 mg Q8HRS IV Last administered on 01/17/18at 15:32; Start 01/16/18 at 15:00; Stop 01/17/18 at 15:58; Status DC Budesonide (Pulmicort) 0.5 mg RTBID NEB Last administered on 01/18/18at 07:23; Start 01/16/18 at 20:00 Enoxaparin Sodium (Lovenox 40mg Syringe) 40 mg Q24H SQ Last administered on 01/17/18at 15:32; Start 01/16/18 at 15:00 Piperacillin Sod/ Tazobactam Sod 3.375 gm/Sodium Chloride 50 ml @ 100 mls/hr Q6HRS IV Last administered on 01/17/18at 12:10; Start 01/16/18 at 15:00; Stop 01/17/18 at 16:51; Status DC Levofloxacin/ Dextrose 100 ml @ 100 mls/hr Q24H IV Last administered on at 15:32; Start 01/16/18 at 16:00; Stop 01/17/18 at 16:51; Status DC Lactobacillus Rhamnosus (Culturelle) 1 cap BID PO Last administered on at 08:43; Start 01/16/18 at 21:00 Albuterol/ Ipratropium (Duoneb) 3 ml RTQID NEB Last administered on 01/18/18 11:05; Start 01/16/18 at 20:00 Albuterol Sulfate (Ventolin Neb Soln) 2.5 mg PRN Q4HRS PRN NEB SHORTNESS OF BREATH; Start 01/16/18 at 16:30 Insulin Glargine (Lantus) 20 units 1X ONCE SQ Last administered on 01/16/18at 20:48; Start 01/16/18 at 20:00; Stop 01/16/18 at 20:01; Status DC Insulin Human Lispro (HumaLOG) 0-9 UNITS TIDWMEALS SQ Last administered on 01/18 12:07; Start 01/17/18 at 08:00 Dextrose (Dextrose 50%-Water Syringe) 12.5 gm PRN Q15MIN PRN IV SEE COMMENTS; Start 01/16/18 at 19:45 Insulin Human Lispro (HumaLOG) 20 units 1X ONCE SQ Last administered on at 20:46; Start 01/16/18 at 20:00; Stop 01/16/18 at 20:01; Status DC Diphenhydramine HCl (Benadryl) 25 mg PRN Q6HRS PRN PO ITCHING Last administered on 01/16/18 20:51; Start 01/16/18 at 20:30 Amlodipine Besylate (Norvasc) 5 mg DAILY PO Last administered on 01/18/18 08: 44; Start 01/17/18 at 11:00 Losartan Potassium (Cozaar) 50 mg DAILY PO Last administered on 01/18/18 08:43 ; Start 01/17/18 at 11:00 Oxycodone/ Acetaminophen (Percocet 7.5/ 325) 1 tab QID PO Last administered on 01/18/18 14:05; Start 01/17/18 at 11:00 Atorvastatin Calcium (Lipitor) 80 mg QHS PO Last administered on 01/17/18at 21: 47; Start 01/17/18 at 21:00 Metformin HCl (Glucophage) 1,000 mg BIDWMEALS PO Last administered on at 08:42; Start 01/17/18 at 12:00 Acetaminophen (Tylenol) 650 mg PRN Q6HRS PRN PO Headache, fever Last administered on 01/18/18 14:09; Start 01/17/18 at 11:15 Insulin Human Lispro (HumaLOG) 2 units 1X ONCE SQ Last administered on 13:06; Start 01/17/18 at 12:30; Stop 01/17/18 at 12:38; Status DC Methylprednisolone Sodium Succinate (SOLU-Medrol 125MG VIAL) 62.5 mg Q8HRS IV Last administered on 01/18/18 14:06; Start 01/17/18 at 22:00 Amoxicillin/ Clavulanate Potassium (Augmentin 875/ 125mg) 1 tab BID PO Last administered on 01/18/18 08:43; Start 01/17/18 at 21:00 Zolpidem Tartrate (Ambien) 5 mg PRN QHS PRN PO INSOMNIA Last administered on 21:56; Start 01/17/18 at 21:45 Active Scripts Active Reported Percocet 7.5-325 Mg Tablet (Oxycodone/Acetaminophen) 1 Each Tablet 1 Tab PO QID Amlodipine Besylate 5 Mg Tablet 5 Mg PO DAILY Metformin Hcl 1,000 Mg Tablet 1,000 Mg PO BIDWMEALS Losartan Potassium 50 Mg Tablet 50 Mg PO DAILY Atorvastatin Calcium 80 Mg Tablet 1 Tab PO DAILY Vital Signs Vital Signs Date Time Temp Pulse Resp B/P (MAP) Pulse Ox O2 Delivery O2 Flow Rate FiO2 01/18/18 14:05 Room Air 01/18/18 11:05 2.0 01/18/18 11:00 97.6 107 16 166/94 (118) 96 97.6 Labs Laboratory Tests Test 01/16/18 16:12 01/16/18 19:43 01/16/18 20:39 01/16/18 21:22 Glucose (Fingerstick) 380 mg/dL (70-99) 423 mg/dL (70-99) 407 mg/dL (70-99) 419 mg/dL (70-99) Test 01/16/18 22:35 01/17/18 07:35 01/17/18 07:39 01/17/18 11:00 Glucose (Fingerstick) 370 mg/dL (70-99) 273 mg/dL (70-99) 374 mg/dL (70-99) White Blood Count 17.8 x10^3/uL (4.0-11.0) Red Blood Count 4.63 x10^6/uL (4.30-5.70) Hemoglobin 13.9 g/dL (13.0-17.5) Hematocrit 40.8 % (39.0-53.0) Mean Corpuscular Volume 88 fL (79-100) Mean Corpuscular Hemoglobin 30 pg (25-35) Mean Corpuscular Hemoglobin Concent 34 g/dL (31-37) Red Cell Distribution Width 14.0 % (11.5-14.5) Platelet Count 346 x10^3/uL (140-400) Neutrophils (%) (Auto) 91 % (31-73) Lymphocytes (%) (Auto) 7 % (24-48) Monocytes (%) (Auto) 3 % (0-9) Eosinophils (%) (Auto) 0 % (0-3) Basophils (%) (Auto) 0 % (0-3) Neutrophils # (Auto) 16.2 x10^3uL (1.8-7.7) Lymphocytes # (Auto) 1.2 x10^3/uL (1.0-4.8) Monocytes # (Auto) 0.5 x10^3/uL (0.0-1.1) Eosinophils # (Auto) 0.0 x10^3/uL (0.0-0.7) Basophils # (Auto) 0.0 x10^3/uL (0.0-0.2) Segmented Neutrophils % 81 % (35-66) Band Neutrophils % 8 % (0-9) Lymphocytes % 6 % (24-48) Atypical Lymphocytes % (Manual) 1 % (0-0) Monocytes % 4 % (0-10) Platelet Estimate Adequate (ADEQUATE) Sodium Level 139 mmol/L (136-145) Potassium Level 3.8 mmol/L (3.5-5.1) Chloride Level 97 mmol/L (98-107) Carbon Dioxide Level 30 mmol/L (21-32) Anion Gap 12 (6-14) Blood Urea Nitrogen 12 mg/dL (8-26) Creatinine 0.9 mg/dL (0.7-1.3) Estimated GFR (Cockcroft-Gault) 85.5 BUN/Creatinine Ratio 13 (6-20) Glucose Level 283 mg/dL (70-99) Calcium Level 9.6 mg/dL (8.5-10.1) Total Bilirubin 0.4 mg/dL (0.2-1.0) Aspartate Amino Transf (AST/SGOT) 13 U/L (15-37) Alanine Aminotransferase (ALT/SGPT) 27 U/L (16-63) Alkaline Phosphatase 109 U/L (46-116) Total Protein 8.2 g/dL (6.4-8.2) Albumin 3.9 g/dL (3.4-5.0) Albumin/Globulin Ratio 0.9 (1.0-1.7) Test 01/17/18 12:08 01/17/18 16:34 01/17/18 20:26 01/18/18 03:20 Glucose (Fingerstick) 388 mg/dL (70-99) 337 mg/dL (70-99) 294 mg/dL (70-99) White Blood Count 22.0 x10^3/uL (4.0-11.0) Red Blood Count 4.42 x10^6/uL (4.30-5.70) Hemoglobin 13.2 g/dL (13.0-17.5) Hematocrit 39.0 % (39.0-53.0) Mean Corpuscular Volume 88 fL (79-100) Mean Corpuscular Hemoglobin 30 pg (25-35) Mean Corpuscular Hemoglobin Concent 34 g/dL (31-37) Red Cell Distribution Width 14.2 % (11.5-14.5) Platelet Count 339 x10^3/uL (140-400) Neutrophils (%) (Auto) 93 % (31-73) Lymphocytes (%) (Auto) 4 % (24-48) Monocytes (%) (Auto) 3 % (0-9) Eosinophils (%) (Auto) 0 % (0-3) Basophils (%) (Auto) 0 % (0-3) Neutrophils # (Auto) 20.4 x10^3uL (1.8-7.7) Lymphocytes # (Auto) 0.9 x10^3/uL (1.0-4.8) Monocytes # (Auto) 0.7 x10^3/uL (0.0-1.1) Eosinophils # (Auto) 0.0 x10^3/uL (0.0-0.7) Basophils # (Auto) 0.0 x10^3/uL (0.0-0.2) Sodium Level 138 mmol/L (136-145) Potassium Level 4.0 mmol/L (3.5-5.1) Chloride Level 99 mmol/L (98-107) Carbon Dioxide Level 29 mmol/L (21-32) Anion Gap 10 (6-14) Blood Urea Nitrogen 19 mg/dL (8-26) Creatinine 1.0 mg/dL (0.7-1.3) Estimated GFR (Cockcroft-Gault) 75.7 BUN/Creatinine Ratio 19 (6-20) Glucose Level 300 mg/dL (70-99) Calcium Level 9.1 mg/dL (8.5-10.1) Total Bilirubin 0.3 mg/dL (0.2-1.0) Aspartate Amino Transf (AST/SGOT) 19 U/L (15-37) Alanine Aminotransferase (ALT/SGPT) 22 U/L (16-63) Alkaline Phosphatase 81 U/L (46-116) Total Protein 7.6 g/dL (6.4-8.2) Albumin 3.4 g/dL (3.4-5.0) Albumin/Globulin Ratio 0.8 (1.0-1.7) Test 01/18/18 07:18 01/18/18 11:00 Glucose (Fingerstick) 264 mg/dL (70-99) 281 mg/dL (70-99) Laboratory Tests Test 01/17/18 16:34 01/17/18 20:26 01/18/18 03:20 01/18/18 07:18 Glucose (Fingerstick) 337 mg/dL (70-99) 294 mg/dL (70-99) 264 mg/dL (70-99) White Blood Count 22.0 x10^3/uL (4.0-11.0) Red Blood Count 4.42 x10^6/uL (4.30-5.70) Hemoglobin 13.2 g/dL (13.0-17.5) Hematocrit 39.0 % (39.0-53.0) Mean Corpuscular Volume 88 fL (79-100) Mean Corpuscular Hemoglobin 30 pg (25-35) Mean Corpuscular Hemoglobin Concent 34 g/dL (31-37) Red Cell Distribution Width 14.2 % (11.5-14.5) Platelet Count 339 x10^3/uL (140-400) Neutrophils (%) (Auto) 93 % (31-73) Lymphocytes (%) (Auto) 4 % (24-48) Monocytes (%) (Auto) 3 % (0-9) Eosinophils (%) (Auto) 0 % (0-3) Basophils (%) (Auto) 0 % (0-3) Neutrophils # (Auto) 20.4 x10^3uL (1.8-7.7) Lymphocytes # (Auto) 0.9 x10^3/uL (1.0-4.8) Monocytes # (Auto) 0.7 x10^3/uL (0.0-1.1) Eosinophils # (Auto) 0.0 x10^3/uL (0.0-0.7) Basophils # (Auto) 0.0 x10^3/uL (0.0-0.2) Sodium Level 138 mmol/L (136-145) Potassium Level 4.0 mmol/L (3.5-5.1) Chloride Level 99 mmol/L (98-107) Carbon Dioxide Level 29 mmol/L (21-32) Anion Gap 10 (6-14) Blood Urea Nitrogen 19 mg/dL (8-26) Creatinine 1.0 mg/dL (0.7-1.3) Estimated GFR (Cockcroft-Gault) 75.7 BUN/Creatinine Ratio 19 (6-20) Glucose Level 300 mg/dL (70-99) Calcium Level 9.1 mg/dL (8.5-10.1) Total Bilirubin 0.3 mg/dL (0.2-1.0) Aspartate Amino Transf (AST/SGOT) 19 U/L (15-37) Alanine Aminotransferase (ALT/SGPT) 22 U/L (16-63) Alkaline Phosphatase 81 U/L (46-116) Total Protein 7.6 g/dL (6.4-8.2) Albumin 3.4 g/dL (3.4-5.0) Albumin/Globulin Ratio 0.8 (1.0-1.7) Test 01/18/18 11:00 Glucose (Fingerstick) 281 mg/dL (70-99) Allergies Allergies Coded Allergies Type Severity Reaction Last Updated Verified No Known Drug Allergies 11/20/13 No Disposition/Orders: D/C to Home Patient Instructions d/c planning 34 min LISA JUDD MD Jan 18, 2018 14:25
--- NOTE | 2018-01-18 14:26 | DISCH ---
DISCHARGE INSTRUCTIONS Condition on Discharge Condition on Discharge: Stable Activity After Discharge Activity Instructions for Disc: Resume previous activity Lifting Instructions after Dis: No heavy lifting, No pulling or pushing Exercise Instruction after Dis: Walk 10 min, 3 x per day Driving Instructions after Dis: Do not drive today Diet after Discharge Diet after Discharge: Cardiac Contacting the [facility] after DC Call your doctor for: If your condition worsens Warfarin Follow-Up Warfarin Follow UP: avoid second-hand smoke LISA JUDD MD Jan 18, 2018 14:26
[2018-01-18] MEDS ORDERED: AMOX1TAB11 PO (14:29)
[2018-01-18] MEDS ORDERED: IPRA3AMP29 NEB (14:29)
[2018-01-18] MEDS ORDERED: PRED50TA PO (14:30)
[2018-01-18 15:00] VITALS: BP 139/103
[2018-01-18] MEDS: ENOXAPARIN 40 MG/0.4 ML SYRINGE. SQ SCH (15:00)
== END 2018-01-18 16:57 | disposition home or self-care (01) | DRG 871 ==
LOC: ER 08:03 → 5 SOUTH 10:45
PROVIDERS: ADMIT Family Medicine; ATTEND Family Medicine
DX: A41.9 Sepsis, unspecified organism (principal); J18.9 Pneumonia, unspecified organism; J96.01 Acute respiratory failure with hypoxia; J44.0 Chronic obstructive pulmonary disease with (acute) lower respiratory infection; J44.1 Chronic obstructive pulmonary disease with (acute) exacerbation; G89.29 Other chronic pain; E11.9 Type 2 diabetes mellitus without complications; E66.9 Obesity, unspecified; E78.5 Hyperlipidemia, unspecified; E78.00 Pure hypercholesterolemia, unspecified; F17.201 Nicotine dependence, unspecified, in remission; I10 Essential (primary) hypertension; Z68.29 Body mass index [BMI] 29.0-29.9, adult; Z79.899 Other long term (current) drug therapy; Z82.49 Family history of ischemic heart disease and other diseases of the circulatory system
CPT/HCPCS: 36415; 71045; 71250; 80048; 80053; 82962; 83880; 84484; 85007; 85025; 87040; 87804; 93005; 94640; 94760; 96361; 96374; J0456; J0690; J1650; J1815; J1956; J2543; J2930; J7030; J7040; J7512; J7613; J7620; J7626; Q0163; 99285-25

== ENCOUNTER 2018-09-29 12:24 | Emergency (ER) | payer OTHER, MEDICARE ==
[~2018-09-29] VITALS: Ht 177.8 cm; Wt 95.3 kg
[~2018-09-29 12:24] MED LIST changes: +AMLO5TAB10 PO; +AMOX1TAB11 PO; +ATORVASTATIN CA80 MG PO; +IPRA3AMP29 NEB; +LOSA-73 PO; +METF10007 PO; +OXYC1TAB19 PO; +PRED50TA PO
--- NOTE | 2018-09-29 14:06 | RAD ---
PROCEDURE: PORTABLE CHEST 1V CLINICAL INDICATION: Fall. Hypertension. COMPARISON: 01/16/2018 FINDINGS: Heart is normal in size. Stable mild prominence of interstitium. No focal consolidation. No pneumothorax or pleural effusion. Visualized bony thorax within normal limits. IMPRESSION: Mild prominence of interstitial opacities maybe secondary to atypical/viral infection. Electronically signed by: Juan Montalvo DO (09/29/2018 2:03 PM) [facility]
--- NOTE | 2018-09-29 14:40 | RAD ---
PQRS Compliance statement: One or more of the following individualized dose reduction techniques were utilized for this examination: 1. Automated exposure control. 2. Adjustment of the mA and/or kV according to patient size. 3. Use of iterative reconstruction technique. Indication:Fall. TECHNIQUE: CT head without IV contrast COMPARISON:None FINDINGS: No pathologic extra-axial or intra-axial fluid collection. The ventricles and basal cisterns are within normal limits. No acute intracranial bleed. 1.2 cm thick right lateral frontal scalp hematoma. No acute calvarial fractures. IMPRESSION: 1. No acute intracranial bleed or calvarial fracture. 2. Moderate right lateral scalp hematoma. Indication:Fall. TECHNIQUE: CT of the maxillofacial bones without IV contrast multiplanar reformats. COMPARISON: None FINDINGS: The lenses, globes, extraocular muscles and intraorbital fat are within normal limits. Mild right preorbital and intraorbital soft tissue swelling. No acute fractures. The paranasal sinuses and mastoid air cells are clear. Temporal mandibular joint and mandible are within normal limits. Visualized upper cervical spine is within normal limits. Noncontrast appearance of the visualized suprahyoid soft tissue is within normal limits. IMPRESSION: 1. Right orbital infraorbital soft tissue inflammation and swelling. 2. No acute fractures. Electronically signed by: Juan Montalvo DO (09/29/2018 2:37 PM) [facility]
[2018-09-29 15:00] LABS: BASO # 0.1 x10^3/uL (0.0-0.2); BASO % 1 % (0-3); EOS # 0.3 x10^3/uL (0.0-0.7); EOS % 4 % (0-3); HEMATOCRIT 36.9 % (39.0-53.0); HEMOGLOBIN 12.6 g/dL (13.0-17.5); LYMPH # 1.9 x10^3/uL (1.0-4.8); LYMPH % 25 % (24-48); MEAN CORPUSCULAR HEMOGLOBIN 30 pg (25-35); MEAN CORPUSCULAR HGB CONC 34 g/dL (31-37); MEAN CORPUSCULAR VOLUME 89 fL (79-100); MONO % 13 % (0-9); NEUT # 4.3 x10^3/uL (1.8-7.7); NEUT % 57 % (31-73); PLATELET COUNT 194 x10^3/uL (140-400); RED BLOOD COUNT 4.14 x10^6/uL (4.30-5.70); RED CELL DISTRIBUTION WIDTH 13.2 % (11.5-14.5); WHITE BLOOD COUNT 7.6 x10^3/uL (4.0-11.0)
[2018-09-29 15:02] LABS: CALCIUM 8.8 mg/dL (8.5-10.1); CREATININE 0.8 mg/dL (0.7-1.3); GFR 97.6; POTASSIUM 4.2 mmol/L (3.5-5.1)
[2018-09-29 15:09] LABS: ALBUMIN 3.5 g/dL (3.4-5.0); ALBUMIN/GLOBULIN RATIO 0.9 (1.0-1.7); MAGNESIUM 1.8 mg/dL (1.8-2.4); TOTAL BILIRUBIN 0.5 mg/dL (0.2-1.0); TOTAL PROTEIN 7.5 g/dL (6.4-8.2)
[2018-09-29 15:15] LABS: BILIRUBIN,URINE NEGATIVE (NEG); CLARITY,URINE CLEAR; COLOR,URINE YELLOW; NITRITE,URINE NEGATIVE (NEG); PH,URINE 5.5; PROTEIN,URINE NEGATIVE (NEG-TRACE); UROBILINOGEN,URINE 0.2 mg/dL (0.2 mg/dL)
[2018-09-29 15:30] LABS: BACTERIA,URINE 0 /HPF (0-FEW); RBC,URINE OCC /HPF (0-2); WBC,URINE OCC /HPF (0-4)
--- NOTE | 2018-09-29 15:42 | PHYS DOC ---
Past Medical History Past Medical History: Diabetes-Type II, High Cholesterol, Hypertension Past Surgical History: Other Additional Past Surgical Histo: L/R ROTATOR CUFF, CARPAL TUNNEL RELEASE,R FOOT Alcohol Use: None Drug Use: None Adult General Chief Complaint Chief Complaint: MECHANICAL FALL HPI HPI Patient is a 63 year old male who presents with obtaining of fall and high blood pressure. Patient states she had an accidental fall from a standing position one week ago with injury to his head and face with ecchymosis along the right eye. Patient denies loss of consciousness, nausea and vomiting, confusion, fever and chills. Patient had increasing of ecchymosis in left eye this morning and his took him to urgent care and had blood pressure of more than 200 and sent to ER for evaluation. Patient states sometimes he forgets to take his medication but had his blood pressure medicine today. Review of Systems Review of Systems Constitutional: Denies fever or chills [] Eyes: Denies change in visual acuity, redness, or eye pain [] HENT: Denies nasal congestion or sore throat [] Respiratory: Denies cough or shortness of breath [] Cardiovascular: No additional information not addressed in HPI [] GI: Denies abdominal pain, nausea, vomiting, bloody stools or diarrhea [] : Denies dysuria or hematuria [] Musculoskeletal: Denies back pain or joint pain [] Integument: Denies rash or skin lesions [] Neurologic: Denies headache, focal weakness or sensory changes [] Endocrine: Denies polyuria or polydipsia [] All other systems were reviewed and found to be within normal limits, except as documented in this note. Allergies Allergies Allergies Coded Allergies Type Severity Reaction Last Updated Verified No Known Drug Allergies 11/20/13 No Physical Exam Physical Exam Constitutional: Well developed, well nourished, no acute distress, non-toxic appearance. [] HENT: Normocephalic, right forehead contusion, right preorbital old ecchymosis, right subconjunctival hemorrhage, bilateral external ears normal, oropharynx moist, no oral exudates, nose normal. [] Eyes: PERRLA, EOMI, conjunctiva normal, no discharge. [] Neck: Normal range of motion, no tenderness, supple, no stridor. [] Cardiovascular:Heart rate regular rhythm, no murmur [] Lungs & Thorax: Bilateral breath sounds clear to auscultation [] Abdomen: Bowel sounds normal, soft, no tenderness, no masses, no pulsatile masses. [] Skin: Warm, dry, no erythema, no rash. [] Back: No tenderness, no CVA tenderness. [] Extremities: No tenderness, no cyanosis, no clubbing, ROM intact, no edema. [] Neurologic: Alert and oriented X 3, normal motor function, normal sensory function, no focal deficits noted. [] Psychologic: Affect normal, judgement normal, mood normal. [] Current Patient Data Vital Signs Vital Signs Date Time Temp Pulse Resp B/P (MAP) Pulse Ox O2 Delivery O2 Flow Rate FiO2 09/29/18 16:23 71 15 96 09/29/18 12:31 98.7 211/96 (134) Room Air 98.7 Lab Values Laboratory Tests Test 09/29/18 14:32 09/29/18 14:35 White Blood Count 7.6 x10^3/uL (4.0-11.0) Red Blood Count 4.14 x10^6/uL (4.30-5.70) L Hemoglobin 12.6 g/dL (13.0-17.5) L Hematocrit 36.9 % (39.0-53.0) L Mean Corpuscular Volume 89 fL (79-100) Mean Corpuscular Hemoglobin 30 pg (25-35) Mean Corpuscular Hemoglobin Concent 34 g/dL (31-37) Red Cell Distribution Width 13.2 % (11.5-14.5) Platelet Count 194 x10^3/uL (140-400) Neutrophils (%) (Auto) 57 % (31-73) Lymphocytes (%) (Auto) 25 % (24-48) Monocytes (%) (Auto) 13 % (0-9) H Eosinophils (%) (Auto) 4 % (0-3) H Basophils (%) (Auto) 1 % (0-3) Neutrophils # (Auto) 4.3 x10^3/uL (1.8-7.7) Lymphocytes # (Auto) 1.9 x10^3/uL (1.0-4.8) Monocytes # (Auto) 1.0 x10^3/uL (0.0-1.1) Eosinophils # (Auto) 0.3 x10^3/uL (0.0-0.7) Basophils # (Auto) 0.1 x10^3/uL (0.0-0.2) Prothrombin Time 12.0 SEC (11.7-14.0) Prothrombin Time INR 0.9 (0.8-1.1) Sodium Level 138 mmol/L (136-145) Potassium Level 4.2 mmol/L (3.5-5.1) Chloride Level 101 mmol/L (98-107) Carbon Dioxide Level 30 mmol/L (21-32) Anion Gap 7 (6-14) Blood Urea Nitrogen 15 mg/dL (8-26) Creatinine 0.8 mg/dL (0.7-1.3) Estimated GFR (Cockcroft-Gault) 97.6 BUN/Creatinine Ratio 19 (6-20) Glucose Level 87 mg/dL (70-99) Calcium Level 8.8 mg/dL (8.5-10.1) Magnesium Level 1.8 mg/dL (1.8-2.4) Total Bilirubin 0.5 mg/dL (0.2-1.0) Aspartate Amino Transferase (AST) 15 U/L (15-37) Alanine Aminotransferase (ALT) 24 U/L (16-63) Alkaline Phosphatase 107 U/L (46-116) Creatine Kinase 86 U/L (39-308) Creatine Kinase MB (Mass) 2.1 ng/mL (0.0-3.6) Creatine Kinase MB Relative Index 2.4 % (0-4) Troponin I Quantitative < 0.017 ng/mL (0.000-0.055) QT-Pcn-F-Type Natriuretic Peptide 265 pg/mL (0-124) H Total Protein 7.5 g/dL (6.4-8.2) Albumin 3.5 g/dL (3.4-5.0) Albumin/Globulin Ratio 0.9 (1.0-1.7) L Lipase 59 U/L (73-393) L Urine Collection Type Unknown Urine Color Yellow Urine Clarity Clear Urine pH 5.5 Urine Specific [place] 1.020 Urine Protein Negative mg/dL (NEG-TRACE) Urine Glucose (UA) Negative mg/dL (NEG) Urine Ketones (Stick) Negative mg/dL (NEG) Urine Blood Negative (NEG) Urine Nitrite Negative (NEG) Urine Bilirubin Negative (NEG) Urine Urobilinogen Dipstick 0.2 mg/dL (0.2 mg/dL) Urine Leukocyte Esterase Negative (NEG) Urine RBC Occ /HPF (0-2) Urine WBC Occ /HPF (0-4) Urine Bacteria 0 /HPF (0-FEW) Urine Mucus Mod /LPF Laboratory Tests 09/29/18 14:32 Laboratory Tests 09/29/18 14:32 EKG EKG EKG interpreted by me. EKG at 1401 showed normal sinus rhythm at rate of 72, normal CT and QT intervals, no acute ST and T-wave abnormalities. Radiology/Procedures Radiology/Procedures [][facility] [address] [place] [address] IMAGING REPORT Signed PATIENT: JOSSUE BOYLE ACCOUNT: [id number] : 1955 LOCATION: ER AGE: 63 SEX: M EXAM STATUS: PRE ER ORD. PHYSICIAN: SANTANA RODRIGUEZ MD REASON: fall and high blood pressure PROCEDURE: PORTABLE CHEST 1V PROCEDURE: PORTABLE CHEST 1V CLINICAL INDICATION: Fall. Hypertension. COMPARISON: 01/16/2018 FINDINGS: Heart is normal in size. Stable mild prominence of interstitium. No focal consolidation. No pneumothorax or pleural effusion. Visualized bony thorax within normal limits. IMPRESSION: Mild prominence of interstitial opacities maybe secondary to atypical/viral infection. Electronically signed by: Juan Montalvo DO (09/29/2018 2:03 PM) [facility] DICTATED and SIGNED BY: JUAN MONTALVO DO DATE: 09/29/18 1403 [facility] [address] [place] [address] IMAGING REPORT Signed PATIENT: JOSSUE BOYLE ACCOUNT: [id number] : 1955 LOCATION: ER AGE: 63 SEX: M EXAM STATUS: REG ER ORD. PHYSICIAN: SANTANA RODRIGUEZ MD REASON: fall, RT SIDED EYE BLUE FALL X1 WEEK PROCEDURE: CT HEAD AND MAXILLOFACIAL WO PQRS Compliance statement: One or more of the following individualized dose reduction techniques were utilized for this examination: 1. Automated exposure control. 2. Adjustment of the mA and/or kV according to patient size. 3. Use of iterative reconstruction technique. Indication:Fall. TECHNIQUE: CT head without IV contrast COMPARISON:None FINDINGS: No pathologic extra-axial or intra-axial fluid collection. The ventricles and basal cisterns are within normal limits. No acute intracranial bleed. 1.2 cm thick right lateral frontal scalp hematoma. No acute calvarial fractures. IMPRESSION: 1. No acute intracranial bleed or calvarial fracture. 2. Moderate right lateral scalp hematoma. Indication:Fall. TECHNIQUE: CT of the maxillofacial bones without IV contrast multiplanar reformats. COMPARISON: None FINDINGS: The lenses, globes, extraocular muscles and intraorbital fat are within normal limits. Mild right preorbital and intraorbital soft tissue swelling. No acute fractures. The paranasal sinuses and mastoid air cells are clear. Temporal mandibular joint and mandible are within normal limits. Visualized upper cervical spine is within normal limits. Noncontrast appearance of the visualized suprahyoid soft tissue is within normal limits. IMPRESSION: 1. Right orbital infraorbital soft tissue inflammation and swelling. 2. No acute fractures. Electronically signed by: Juan Montalvo DO (09/29/2018 2:37 PM) [facility] DICTATED and SIGNED BY: JUAN MONTALVO DO DATE: 09/29/18 143 Course & Med Decision Making Course & Med Decision Making Pertinent Labs and Imaging studies reviewed. (See chart for details) Evaluation of patient in ER showed 63-year-old male patient with a fall one week ago and increasing the orbital ecchymosis and elevation of blood pressure after missing his medication. Patient had blood pressure more than 200 at arrival to ER that gradually decreased to 170s over 90s without treatment. Patient had unremarkable CT head and neck and labs and EKG and was advised to take his prescribed medication and follow up with his primary care physician. Patient did not want to have pain medication in ER. Dragon Disclaimer Dragon Disclaimer This electronic medical record was generated, in whole or in part, using a voice recognition dictation system. Departure Departure Impression: Primary Impression: Head injury Additional Impressions: Hypertensive urgency Facial contusion Disposition: HOME, SELF-CARE (at 1540) Condition: IMPROVED Referrals: OLIVER,MICHELLE A (PCP) Patient Instructions: Facial or Scalp Contusion, Form - Blood Pressure Record Sheet, Head Injury, Adult, How to Take Your Blood Pressure, [id number], Managing Your High Blood Pressure Additional Instructions: Take your blood pressure medication as instructed Follow-up with your primary care physician in 3-5 days Return to ER if not getting better Problem Qualifiers Primary Impression: Head injury Encounter type: initial encounter Qualified Codes: S09.90XA - Unspecified injury of head, initial encounter Additional Impressions: Facial contusion Encounter type: subsequent encounter Qualified Codes: S00.83XD - Contusion of other part of head, subsequent encounter SANTANA RODRIGUEZ MD Sep 29, 2018 15:42
[2018-09-29 16:23] VITALS: BP 173/90
--- NOTE | 2018-09-29 18:11 | EKG ---
[facility] [address] [place] [address] Test Date: 2018-09-29 Test Time: 14:01:57 Pat Name: JOSSUE BOYLE Department: Room: Gender: [employer]: : 1955 Requested By: SANTANA RODRIGUEZ Order Number: [id number] Reading MD: Measurements Intervals [place] Rate: 72 P: 90 GA: 146 QRS: 30 QRSD: 88 T: 37 QT: 378 QTc: 415 Interpretive Statements SINUS RHYTHM NO SPECIFIC ECG ABNORMALITIES RI6.01 No previous ECG available for comparison
== END 2018-09-29 16:47 | disposition home or self-care (01) ==
LOC: ER 12:24
DX: S00.83XA Contusion of other part of head, initial encounter (principal); I16.0 Hypertensive urgency; H11.31 Conjunctival hemorrhage, right eye; E11.9 Type 2 diabetes mellitus without complications; E78.00 Pure hypercholesterolemia, unspecified; I10 Essential (primary) hypertension; W18.39XA Other fall on same level, initial encounter; Y93.89 Activity, other specified; Y92.89 Other specified places as the place of occurrence of the external cause; Y99.8 Other external cause status
CPT/HCPCS: 36415; 70450; 70486; 71045; 80053; 81001; 82550; 82553; 83690; 83735; 83880; 84484; 85025; 85610; 93005; 99285-25